=== PATIENT | female | born 1985 | race African-American/Black ===

== ENCOUNTER 2017-06-10 20:23 | Inpatient (IN) | payer OTHER ==
[2017-06-10] MEDS ORDERED: METOCLOPRAMIDE HCL INJECTION 10 MG/2 ML VIAL IVPUSH ONE (20:55)
[2017-06-10] MEDS ORDERED: SODIUM CHLORIDE 1,000 ML IV STA (20:55)
[2017-06-10] MEDS ORDERED: METOCLOPRAMIDE HCL INJECTION 10 MG/2 ML VIAL ONE (20:59)
--- NOTE | 2017-06-10 20:59 | PDOC ---
History of Present Illness - General Chief Complaint: Syncope/Near Syncope Stated Complaint: SYNCOPE Time Seen by Provider: 06/10/17 20:26 - History of Present Illness Initial Comments: 06/10/17 21:09 The patient is a 32 year old 3 months female who presents for evaluation following a syncopal episode. The patient reports that she was standing in line at a store and has a tingling sensation before having a witnessed syncopal episode. The patient's friend reports that he patient fell backwards against a fridge before sliding down to the floor. The patient denies any chest pain or palpitations prior to the syncopal episode. She denies any family history of heart disease or sudden . She reports that she follows with an OB and has had an US demonstrating a healthy intrauterine . She reports that over the past 2-3 weeks, she has been vomiting daily due to the . She denies any fevers, chills, SOB, chest pain, palpitations, abdominal pain, vaginal discharge, vaginal bleeding, or changes with urination or bowel movements. Past History - Past Medical History Allergies/Adverse Reactions: Allergies Allergy/AdvReac Type Severity Reaction Status Date / Time No Known Allergies Allergy Verified 06/10/17 20:27 Home Medications: Ambulatory Orders No Home Medications 0 dose .ROUTE UTDICT 01/09/13 Other medical history: Pt denies - Suicide/Smoking/Psychosocial Hx Smoking Status: No Smoking History: Never smoked Have you smoked in the past 12 months: No Number of Cigarettes Smoked Daily: 0 Information on smoking cessation initiated: No Hx Alcohol Use: No Drug/Substance Use Hx: No Substance Use Type: None Review of Systems - Review of Systems Comments:: 06/10/17 21:15 Constitutional: No fevers, chills, fatigue, malaise HEENT: No Rhinorrhea, nasal congestion, Cardiovascular: Syncope. No chest pain, palpitations, lightheadedness Respiratory: No Cough, SOB, Hemoptysis, Gastrointestinal: Nausea, vomiting. No Abdominal pain, Constipation, Diarrhea, Melena Genitourinary: No Dysuria, Frequency, Urgency, Hesitancy, Hematuria, Flank pain Musculoskeletal: No Myalgia, arthralgia Skin: No rashes, bruising, pallor Neurologic: No Headache, Dizziness, Numbness, Weakness, or Tingling *Physical Exam - Vital Signs Last Vital Signs Temp Pulse Resp BP Pulse Ox 97.6 F 74 20 98/62 98 06/10/17 20:27 06/10/17 20:27 06/10/17 20:27 06/10/17 20:27 06/10/17 20:27 - Physical Exam Comments: 06/10/17 21:17 General Appearance: Nourished. No Apparent Distress HEENT: EOMI, NIKKI. No Pharyngeal Erythema, Tonsillar Exudate, Tonsillar Erythema Neck: No Cervical Lymphadenopathy Respiratory/Chest: Lungs Clear, Normal Breath Sounds. No Crackles, Rales, Rhonchi, Wheezing Cardiovascular: Regular Rhythm, Regular Rate. No Murmur, Gallops, Rubs Gastrointestinal/Abdominal: Normal Bowel Sounds, Soft. 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 ED Treatment Course - LABORATORY CBC & Chemistry Diagram: 06/10/17 20:45 06/10/17 20:45 Medical Decision Making - Medical Decision Making 06/10/17 21:18 The patient is a 32 year old 3 months female who presents for evaluation following a syncopal episode. Differential includes but is not limited to: Vaso-vagal syncope, Arrhythmia, anemia, metabolic derangement. Given the patient's bp of 98 systolic here in the ED and history of tingling prior to the syncopal episode, it is likely her episode was due to vaso-vagol. However, it is also possible she is hypovolemic given her multiple episodes of vomiting and low bp. We will send a cbc, cmp to evaluate and obtain a ekg. We will give her a 1L ns bolus here in the ED and continue to monitor and reassess. 06/11/17 01:28 cbc is unremarkable. cmp demonstrates a sodium of 128, potassium of 2.8, and elevated liver enzymes. We repleated her potassium with 40mg po with 2gm of Iv mg. Given the patient's electrolyte abnormalities, elevated liver enzymes in the setting of syncope during , we believe that she requires admission for further management of her symptoms. We discussed the case with Dr. Cano who accepted the case for admission. We discussed the plan and results with the patient who voiced understanding and is agreeable with the plan. *DC/Admit/Observation/Transfer Diagnosis at time of Disposition: Syncope Qualifiers: Syncope type: unspecified Qualified Code(s): R55 - Syncope and collapse - Discharge Dispostion Condition at time of disposition: Guarded Admit: Yes
[2017-06-10 21:01] LABS: MCH 27.2 pg (25.7-33.7); MCHC 33.8 g/dl (32.0-36.0); MEAN CELL VOLUME 80.4 fl (80-96); MEAN PLT VOLUME 8.1 fl (7.5-11.1); PLATELET COUNT 290 K/MM3 (134-434); RDW 13.9 % (11.6-15.6); WHITE BLOOD COUNT 9.9 K/mm3 (4.0-10.0)
[2017-06-10 21:33] LABS: ALBUMIN 3.8 g/dl (3.4-5.0); ANION GAP 16 (8-16); CALCIUM 9.6 mg/dL (8.5-10.1); CO2 29 mmol/L (21-32); CREATININE 0.7 mg/dL (0.55-1.02); GLUCOSE,RANDOM 107 mg/dL (74-106); SGPT/ALT 86 U/L (12-78)
[2017-06-10 21:35] LABS: ALK PHOS 74 U/L (45-117); BILIRUBIN,TOTAL 1.8 mg/dL (0.2-1.0); TOT PROT 7.7 g/dl (6.4-8.2)
[2017-06-10 21:39] LABS: SGOT/AST 52 U/L (15-37)
[2017-06-10] MEDS ORDERED: POTASSIUM CHLORIDE TABS 20 MEQ TABLET.ER (FP) PO ONE ×2 (21:41→21:52)
[2017-06-10] MEDS ORDERED: MAGNESIUM SULF 50% (8.12 MEQ/2 ML-1 GM VIAL) IVPB ONE (21:42)
[2017-06-10] MEDS ORDERED: MAGNESIUM SULF 50% (8.12 MEQ/2 ML-1 GM VIAL) ONE (21:52)
[2017-06-10] MEDS ORDERED: POTASSIUM CHLORIDE ORAL LIQUID 20 MEQ/15 ML PO ONE (22:01)
[2017-06-10] MEDS ORDERED: POTASSIUM CHLORIDE ORAL LIQUID 20 MEQ/15 ML ONE (22:02)
--- NOTE | 2017-06-10 23:26 | PDOC ---
Attending Attestation - Resident Resident Name: BritHakeem - HPI HPI: 06/10/17 23:25 Pt comes with multiple episodes of vomiting. SHe is . Hyperemesis gravidum. - Physicial Exam PE: 06/10/17 23:26 Agree with resident exam - Medical Decision Making 06/10/17 23:26 EKG NSR; borderline tachy; pt is getting hydration and mag and potassium in [facility] ER. 06/11/17 05:05 Pt will be admitted for hypokalemia and syncope; report given to Dr. Cano, associate of pt's PMD [facility]. Pt will be admitted to telelmetry and her GYNs from [facility] will consult on the floor. 06/11/17 05:08 Pt is feeling better
[2017-06-10] MEDS ORDERED: SODIUM CHLORIDE 0.9% 500 ML INFUS.BAG IV ONE (23:27)
[2017-06-11 00:12] LABS: CPK 64 IU/L (26-192); TROPONIN I < 0.02 ng/ml (0.00-0.05)
[2017-06-11 02:03] LABS: ANION GAP 12 (8-16); CALCIUM 8.4 mg/dL (8.5-10.1); CO2 32 mmol/L (21-32); CREATININE 0.5 mg/dL (0.55-1.02); GLUCOSE,RANDOM 113 mg/dL (74-106)
[2017-06-11] MEDS ORDERED: METOCLOPRAMIDE HCL INJECTION 10 MG/2 ML VIAL IVPUSH PRN (02:49)
[2017-06-11] MEDS ORDERED: ACETAMINOPHEN 325 MG TABLET (FP) PO PRN (02:50)
[2017-06-11] MEDS ORDERED: SODIUM CHLORIDE 1,000 ML IV SCH (03:00)
[2017-06-11] MEDS: KCL 10 MEQ IVPB 100 ML IVPB SCH ×5 (03:29→22:50)
[2017-06-11 03:34] LABS: URINE APPEARANCE SLCLOUDY; URINE BILIRUBIN NEGATIVE (NEGATIVE); URINE BLOOD 1+ (NEGATIVE); URINE COLOR AMBER; URINE GLUCOSE (UA) NEGATIVE (NEGATIVE); URINE KETONE 2+ (NEGATIVE); URINE NITRITE NEGATIVE (NEGATIVE); URINE UROBILINOGEN 4.0 E.U/dl mg/dL (0.2-1.0)
[2017-06-11 03:38] LABS: URINE PROTEIN 1+ (NEGATIVE)
[2017-06-11 03:40] LABS: URINE BACTERIA RARE /hpf (NONE SEEN); URINE HYALINE CAST 13 /lpf; URINE MUCUS RARE; URINE RBC 8 /hpf (0-3); URINE WBC 15 /hpf (3-5)
[2017-06-11 03:48] VITALS: BMI 34.4
[2017-06-11 07:29] LABS: MCH 26.7 pg (25.7-33.7); MCHC 33.5 g/dl (32.0-36.0); MEAN CELL VOLUME 79.8 fl (80-96); PLATELET COUNT 217 K/MM3 (134-434); WHITE BLOOD COUNT 11.8 K/mm3 (4.0-10.0)
[2017-06-11 07:50] LABS: ALBUMIN 2.9 g/dl (3.4-5.0); ANION GAP 10 (8-16); CALCIUM 8.5 mg/dL (8.5-10.1); CO2 30 mmol/L (21-32); GLUCOSE,RANDOM 103 mg/dL (74-106)
[2017-06-11 07:54] LABS: ALK PHOS 59 U/L (45-117); BILIRUBIN,TOTAL 1.8 mg/dL (0.2-1.0); CREATININE 0.4 mg/dL (0.55-1.02); SGOT/AST 59 U/L (15-37); SGPT/ALT 88 U/L (12-78); TOT PROT 6.2 g/dl (6.4-8.2)
--- NOTE | 2017-06-11 09:06 | CON.NEURO ---
Consult - History of Present Illness History of Present Illness: 32 year old female , three month . She had episode of passing out maty night on may. Mariposa do not suffers from migraine or epilepsy. She passed out few minute and regain back to normal in few minute. She may have hit her head and her head is sore. Patient has been having nausea and vomiting throughout first trimester. Before she passed out, she felt dizzy and tingling sensation in her body. There was no twitnessed seizure. This is her fourth . - Past Medical History ...: Yes - Alcohol/Substance Use Hx Alcohol Use: No - Smoking History Smoking history: Never smoked Have you smoked in the past 12 months: No Aproximately how many cigarettes per day: 0 Home Medications - Allergies Allergies/Adverse Reactions: Allergies Allergy/AdvReac Type Severity Reaction Status Date / Time No Known Allergies Allergy Verified 06/10/17 20:27 - Home Medications Home Medications: Ambulatory Orders No Home Medications 0 dose .ROUTE UTDICT 01/09/13 Physical Exam-Neuro Vital Signs: Vital Signs Temperature 98.3 F 06/11/17 06:00 Pulse Rate 95 H 06/11/17 06:00 Respiratory Rate 20 06/11/17 06:00 Blood Pressure 110/65 06/11/17 06:00 O2 Sat by Pulse Oximetry (%) 99 06/11/17 03:47 Labs: CBC, BMP 06/11/17 06:45 06/11/17 06:45 Assessment/Plan cc syncopal episode HPI 32 year old female , three month . She had episode of passing out maty night on may. Mariposa do not suffers from migraine or epilepsy. She passed out few minute and regain back to normal in few minute. She may have hit her head and her head is sore. Patient has been having nausea and vomiting throughout first trimester. Before she passed out, she felt dizzy and tingling sensation in her body. There was no twitnessed seizure. This is her fourth . Past Medical history none. Medication only mvi denies any toxic habits. ROS, FH was reviewed in chart Neurological Examination Alert oriented x 3, speech is normal Eomi, pupils is reactive and no face asymmetry motor strength is normal, sensation is normal and reflex is normal no brain imaging done Assessment- Most likley vaso vagal syncope due hyperemesis during . There is no evidence of seizure and no supician for any neurological illness ( meningitis or stroke) at this time. Plan no need for ct head or mri of brain - would watch clinically , if she has any focal neuro symptoms consider mri of brain, it was discussed with patient She was given my info and advise to follow up outpatient Thnaks for consult Nacho Yuen MD
--- NOTE | 2017-06-11 09:31 | CON.CARD ---
Consult Consult Specialty:: CARDIOLOGY Referred by:: Dr. Cano Reason for Consultation:: Syncope - History of Present Illness Chief Complaint: Syncope History of Present Illness: 32 year old woman at 3 months gestation admitted with an episode of syncope and noted to have hypokalemia. Pt seen and examined today in nad. pt states that she has been nauseous and vomiting for a few weeks now, unable to keep much food or water down. she states this is similar to prior pregnancies. she states that she has been feeling lightheaded and dizzy lately but has not passed out until this event. she states that she was in the store standing in line yesterday when she felt lightheaded. she leaned on the counter to support herself but then lost consciousness and fell to the ground. in the ER found to have hypokalemia. today she states she is feeling much better. no nausea or vomiting today. able to keep down liquids. denies any chest pain, sob, palpitations. no pnd, orthopnea, or le edema. - History Source History Provided By: Patient, Medical Record Limitations to Obtaining History: No Limitations - Past Medical History ...: Yes Psych: Yes: Addictions - Alcohol/Substance Use Hx Alcohol Use: No History of Substance Use: reports: Marijuana - Smoking History Smoking history: Never smoked Have you smoked in the past 12 months: No Aproximately how many cigarettes per day: 0 - Social History ADL: Independent History of Recent Travel: No Home Medications - Allergies Allergies/Adverse Reactions: Allergies Allergy/AdvReac Type Severity Reaction Status Date / Time No Known Allergies Allergy Verified 06/10/17 20:27 - Home Medications Home Medications: Ambulatory Orders No Home Medications 0 dose .ROUTE UTDICT 01/09/13 Family Disease History - Family Disease History Family History: Denies Review of Systems - Review of Systems Constitutional: denies: No Symptoms, Chills, Diaphoresis, Fever, Lethargy, Loss of Appetite, Malaise, Night Sweats, Unintentional Wgt. Loss, Weakness, Other Eyes: denies: No Symptoms, Blind Spots, Blurred Vision, Double Vision, Eye Pain , Floaters, Photophobia, Recent Change in Vision, Other HENT: denies: No Symptoms, Difficult Swallowing, Ear Discharge, Ear Pain, Epistaxis, Gingival Bleeding, Hearing Loss, Mouth Swelling, Nasal Congestion, Ocular Prosthesis, Throat Pain, Toothache, Ringing in Ears, Other Neck: denies: No Symptoms, Decreased ROM, Lumps, Pain on Movement, Stiffness, Swollen Glands, Tenderness, Other Cardiovascular: denies: No Symptoms, Chest Pain, Edema, Palpitations, Shortness of Breath, Other Respiratory: denies: No Symptoms, Cough, Exercise Intolerance, Hemoptysis, Orthopnea, PND, Snoring, SOB, SOB on Exertion, Wheezing, Other Gastrointestinal: reports: Nausea, Vomiting. denies: No Symptoms, Abdominal Pain, Bloating, Constipation, Diarrhea, Dysphagia, Indigestion, Melena, Rectal Bleeding, Vomiting Blood, Other Genitourinary: denies: No Symptoms, Burning, Discharge, Dysuria, Flank Pain, Frequency, Hematuria, Incontinence, Lesions, Menses, Pain, Testicular Mass, Testicular Pain, Testicular Swelling, Urgency, Vaginal Bleeding, Other Breasts: denies: No Symptoms Reported, See HPI, Breast Implants, Discharge from Nipple, Lumps, Pain, Skin Changes, Other Musculoskeletal: denies: No Symptoms, Back Pain, Crepitus, Decreased ROM, Extremity Pain, Joint Pain, Joint Swelling, Muscle Pain, Muscle Cramps, Muscle Weakness, Other Integumentary: denies: No Symptoms, Blister, Bruising, Change in Color, Eczema, Erythema, Incision, Lesions, Lump, Pallor, Pruritis, Rash, Wound, Other Neurological: reports: Dizziness, Syncope. denies: No Symptoms, Change in LOC, Change in Speech, Confusion, Headache, Incoordination, Numbness, Parasthesia, Pre-Existing Deficit, Seizure, Tremors, Unsteady Gait, Weakness, Other Endocrine: denies: No Symptoms, Excessive Sweating, Flushing, Increased Hunger, Increased Thirst, Intolerance to Cold, Intolerance to Heat, Unexplained Weight Gain, Unexplained Weight Loss, Other Hematology/Lymphatic: denies: No Symptoms, Easily Bruised, Excessive Bleeding, Swollen Glands, Other Psychiatric: denies: No Symptoms, Altered Sleep Pattern, Anxiety, Depression, Hallucinations, Panic, Paranoia, Suicidal, Other Vital Signs: Vital Signs Temperature 98.3 F 06/11/17 06:00 Pulse Rate 95 H 06/11/17 06:00 Respiratory Rate 20 06/11/17 06:00 Blood Pressure 110/65 06/11/17 06:00 O2 Sat by Pulse Oximetry (%) 99 06/11/17 03:47 Constitutional: Yes: Well Nourished, No Distress, Calm Eyes: Yes: WNL, Conjunctiva Clear, EOM Intact, PERRL HENT: Yes: WNL, Atraumatic, Normocephalic Neck: Yes: WNL, Supple, Trachea Midline Respiratory: Yes: WNL, Regular, CTA Bilaterally. No: Rales, Rhonchi, Wheezes Gastrointestinal: Yes: WNL, Normal Bowel Sounds, Soft. No: Distention, Tenderness Renal/: Yes: WNL Cardiovascular: Yes: WNL, Regular Rate and Rhythm. No: Bradycardia, Tachycardia , Pulse Irregular, Gallop, Rub, Varicosities JVD: No Carotid Bruit: No PMI: Non-Displaced Heart Sounds: Yes: S1, S2. No: Split S2, S3, S4, Clicks, Gallop, Rub, Bruit Murmur: No: Systolic Murmur, Diastolic Murmur Musculoskeletal: Yes: WNL Extremities: Yes: WNL Edema: No Peripheral Pulses WNL: Yes Peripheral Pulses: 2+ Left Doralis Pedis, 2+ Right Dorsalis Pedis Integumentary: Yes: WNL Neurological: Yes: Alert, Oriented, Cran Nerves II-XII Intact Psychiatric: Yes: Alert, Oriented - Other Data Labs, Other Data: CBC, BMP 06/11/17 06:45 06/11/17 06:45 ekg-nsr 92bpm, no sig ST abnl Echo: Pending Imaging - Results Chest X-ray: Report Reviewed, Image Reviewed EKG: Report Reviewed, Image Reviewed Other: Report Reviewed, Image Reviewed (tele-nsr, sinus tach, no arryhthmias recorded) Assessment/Plan 32 year old woman at 3 months gestation admitted with an episode of syncope and noted to have hypokalemia. Pt seen and examined today in nad. pt states that she has been nauseous and vomiting for a few weeks now, unable to keep much food or water down. she states this is similar to prior pregnancies. she states that she has been feeling lightheaded and dizzy lately but has not passed out until this event. she states that she was in the store standing in line yesterday when she felt lightheaded. she leaned on the counter to support herself but then lost consciousness and fell to the ground. in the ER found to have hypokalemia. today she states she is feeling much better. no nausea or vomiting today. able to keep down liquids. denies any chest pain, sob, palpitations. no pnd, orthopnea, or le edema. Syncope/dizziness/lightheadedness -likely vasovagal secondary to persistent nausea/vomiting, hypokalemia -unlikely cardiac event, no arrhythmias recorded, no abnl on ekg -seen by neuro -check echo to evaluate for structural abnl -can hold of on carotid doppler, unlikely source -check orthostatic BP -hydration as needed, encourage po hydration -treat nausea and vomiting -replete K+, check Mg level and replete if needed -OB evaluation -would check for DMII -if no abnl on echo, pt tolerating po, nausea/vomiting improved, orthostatic BP ok, pt would be acceptable for discharge from a cardiac standpoint with outpatient f/up
--- NOTE | 2017-06-11 10:01 | EKG ---
Test Reason : Blood Pressure : / mmHG Vent. Rate : 092 BPM Atrial Rate : 092 BPM P-R Int : 166 ms QRS Dur : 096 ms QT Int : 362 ms P-R-T Axes : 067 045 039 degrees QTc Int : 447 ms NORMAL SINUS RHYTHM NORMAL ECG NO PREVIOUS ECGS AVAILABLE Confirmed by NORA AVERY MD ([id number]) on 06/11/2017 10:00:27 AM Referred By: Confirmed By:NORA AVERY MD
[2017-06-11 10:20] LABS: URINE LEUK ESTERASE Negative (NEGATIVE)
--- NOTE | 2017-06-11 12:01 | CON.OBG ---
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 The patient admits to having significant nausea/vomiting this . Pt fell back and slid to the floor, no witnessed seizure activity per her family. Pt denies any current KUO/chest pain/SOB. so far uncomplicated other than nausea/vomiting. - History Source History Provided By: Patient, Medical Record - Past Medical History Cardio/Vascular: No: HTN, Murmur Pulmonary: No: COPD Gastrointestinal: Yes: Other (nausea/vomiting of ). No: GERD Renal/: No: Hematuria, UTI ...: Yes ...: 11 ...Para: 3 Psych: Yes: Addictions - Alcohol/Substance Use Hx Alcohol Use: No History of Substance Use: reports: Marijuana - Smoking History Smoking history: Never smoked Have you smoked in the past 12 months: No Aproximately how many cigarettes per day: 0 - Social History ADL: Independent History of Recent Travel: No Home Medications - Allergies Allergies/Adverse Reactions: Allergies Allergy/AdvReac Type Severity Reaction Status Date / Time No Known Allergies Allergy Verified 06/10/17 20:27 - Home Medications Home Medications: Ambulatory Orders No Home Medications 0 dose .ROUTE UTDICT 01/09/13 Review of Systems - Review of Systems Constitutional: reports: No Symptoms Eyes: reports: No Symptoms HENT: reports: No Symptoms Neck: reports: No Symptoms Cardiovascular: reports: No Symptoms Respiratory: reports: No Symptoms Gastrointestinal: reports: No Symptoms Genitourinary: reports: No Symptoms Breasts: reports: No Symptoms Reported Musculoskeletal: reports: No Symptoms Integumentary: reports: No Symptoms Neurological: reports: No Symptoms Endocrine: reports: No Symptoms Hematology/Lymphatic: reports: No Symptoms Psychiatric: reports: No Symptoms 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[employer] Vital Signs: Vital Signs Temperature 99.2 F 06/11/17 10:00 Pulse Rate 100 H 06/11/17 10:00 Respiratory Rate 18 06/11/17 10:00 Blood Pressure 133/62 06/11/17 10:00 O2 Sat by Pulse Oximetry (%) 99 06/11/17 03:47 Constitutional: Yes: Well Nourished, No Distress, Calm Eyes: Yes: Conjunctiva Clear, EOM Intact HENT: Yes: Atraumatic, Normocephalic Neck: Yes: Supple, Trachea Midline Cardiovascular: Yes: Regular Rate and Rhythm Respiratory: Yes: Regular, CTA Bilaterally Gastrointestinal: Yes: Normal Bowel Sounds, Soft ....Post : Yes: Uterus non-tender Extremities: Yes: WNL Neurological: Yes: Alert, Oriented Psychiatric: Yes: Alert, Oriented Labs: CBC, BMP 06/11/17 06:45 06/11/17 06:45 Problem List - Problems (1) Syncope Code(s): R55 - SYNCOPE AND COLLAPSE Qualifiers: Syncope type: unspecified Qualified Code(s): R55 - Syncope and collapse ; R55 - Syncope and collapse Assessment/Plan 32 y/o P3 with SIUP at 12.2 weeks gestation here with episode of syncope, nausea , vomiting and hyponatremia/hypokalemia - AFVSS - Still hyponatremic and hypokalemia - for repletion as needed. Continue IV fluids. - nausea/vomiting - improved s/p reglan. Able to tolerate diet. Continue regular diet - 12.2 weeks of - ultrasound ordered - syncope - evaluated by neuro/cardiology with suspected vasovagal episode. Currently asymptomatic. - continue current care, once electrolyte imbalance improved/resolved and pt tolerating PO can follow up as outpatient
[2017-06-11] MEDS ORDERED: POTASSIUM CHLORIDE TABS 20 MEQ TABLET.ER (FP) PO ONE (15:15)
--- NOTE | 2017-06-11 15:30 | CONSULT ---
Consultation: REQUESTING PROVIDER: Dr. Cano CONSULT REQUEST: We have been asked to medically evaluate this patient for NEPHROLOGY / hyponatremia. HISTORY OF PRESENT ILLNESS: 32 y/o F who is 3 months presents to ER s/p syncopal event. Pt was standing in line at store where she syncopized. Before syncopal event pt felt tingling and numbness in arms. She has been vomiting for the last 2-3 weeks due to her . This is the second time she has syncopized. SHe syncopized in the past with another and at that time she was also vomiting. She states at this time she has not been able to eat or keep down water for the last 2 weeks and has been throwing up multiple times per day. At this time she feels well and has been able to tolerate her diet. She denies any CP, SOB, light -headedness, dizziness, swelling, abd pain, issues urinating, sick contacts, fevers, chills. REVIEW OF SYSTEMS: CONSTITUTIONAL: Absent: fever, chills CARDIOVASCULAR: +syncope Absent: chest pain, lightheadedness, peripheral edema RESPIRATORY: Absent: cough, shortness of breath GASTROINTESTINAL: Absent: abdominal pain, nausea, vomiting GENITOURINARY: Absent: dysuria, hematuria NEUROLOGIC: +syncopal event w/preceding parasthesias. Absent: headache, dizziness PHYSICAL EXAMINATION Vital Signs - 24 hr 06/11/17 06/11/17 06/11/17 01:31 03:42 03:47 Temperature 98.4 F Pulse Rate 84 Pulse Rate [ 76 Right] Respiratory 18 18 18 Rate Blood Pressure 122/51 Blood Pressure 106/65 [Left Arm] O2 Sat by Pulse 99 99 Oximetry (%) 06/11/17 06/11/17 06/11/17 06:00 09:00 10:00 Temperature 98.3 F 99.2 F Pulse Rate 95 H 100 H Pulse Rate [ Right] Respiratory 20 18 18 Rate Blood Pressure 110/65 133/62 Blood Pressure [Left Arm] O2 Sat by Pulse 99 Oximetry (%) GENERAL: Awake, alert, and fully oriented, in no acute distress. EYES: sclera anicteric, conjunctiva clear. EARS, NOSE, THROAT: Ears normal, nares patent LUNGS: Breath sounds equal, clear to auscultation bilaterally. HEART: Regular rate and rhythm, normal S1 and S2 ABDOMEN: Soft, nontender, not distended, normoactive bowel sounds, no guarding LOWER EXTREMITIES: well-perfused. No peripheral edema. NEUROLOGICAL: Normal speech. Gait not observed. PSYCHIATRIC: Cooperative. Good eye contact. Appropriate mood and affect. SKIN: Warm, dry Laboratory Results - last 24 hr 06/11/17 06/11/17 06/11/17 00:53 03:00 06:45 WBC 11.8 H RBC 4.63 Hgb 12.4 D Hct 37.0 MCV 79.8 L MCH 26.7 MCHC 33.5 RDW 14.0 Plt Count 217 D MPV 8.0 Sodium 133 L Potassium 3.3 L Chloride 89 L Carbon Dioxide 32 Anion Gap 12 BUN 10 Creatinine 0.5 L D Creat Clearance w eGFR Random Glucose 113 H Calcium 8.4 L Magnesium Total Bilirubin AST ALT Alkaline Phosphatase Total Protein Albumin Urine Color Donna Urine Appearance Slcloudy Urine pH 5.0 Ur Specific Standish 1.020 Urine Protein 1+ H Urine Glucose (UA) Negative Urine Ketones 2+ H Urine Blood 1+ H Urine Nitrite Negative Urine Bilirubin Negative Urine Urobilinogen 4.0 e.u/dl H Ur Leukocyte Esterase Negative Urine RBC 8 Urine WBC 15 Ur Epithelial Cells Rare Urine Bacteria Rare Hyaline Casts 13 Urine Mucus Rare 06/11/17 06/11/17 06:45 12:17 WBC RBC Hgb Hct MCV MCH MCHC RDW Plt Count MPV Sodium 130 L Potassium 2.8 L* Chloride 90 L Carbon Dioxide 30 Anion Gap 10 BUN 7 D Creatinine 0.4 L Creat Clearance w eGFR > 60 Random Glucose 103 Calcium 8.5 Magnesium 2.2 Total Bilirubin 1.8 H AST 59 H ALT 88 H Alkaline Phosphatase 59 D Total Protein 6.2 L Albumin 2.9 L D Urine Color Urine Appearance Urine pH Ur Specific Standish Urine Protein Urine Glucose (UA) Urine Ketones Urine Blood Urine Nitrite Urine Bilirubin Urine Urobilinogen Ur Leukocyte Esterase Urine RBC Urine WBC Ur Epithelial Cells Urine Bacteria Hyaline Casts Urine Mucus Active Medications Generic Name Dose Route Start Last Admin Trade Name Freq PRN Reason Stop Dose Admin Acetaminophen 650 mg 06/11/17 02:50 Tylenol - PO Q6H PRN FEVER OR PAIN Sodium Chloride 1,000 mls @ 50 mls/hr 06/11/17 03:00 06/11/17 03:29 Normal Saline - IV 50 mls/hr ASDIR CECIL Administration Metoclopramide HCl 10 mg 06/11/17 02:49 Reglan Injection - IVPUSH Q8H PRN NAUSEA Potassium Chloride 40 meq 06/11/17 15:15 K-Dur - PO 06/11/17 15:16 ONCE ONE ASSESSMENT/PLAN: 32 y/o F who is 3 months presents to ER s/p syncopal event w/nausea and vomiting over the last 2-3 weeks. 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 Thank you for this consultative opportunity. Visit type - Emergency Visit Emergency Visit: Yes ED Registration Date: 06/11/17 Care time: The patient presented to the Emergency Department on the above date and was hospitalized for further evaluation of their emergent condition. - New Patient This patient is new to me today: Yes Date on this admission: 06/11/17 - Critical Care Critical Care patient: No
[2017-06-11] MEDS ORDERED: POTASSIUM CHLORIDE ORAL LIQUID 20 MEQ/15 ML PO ONE ×2 (16:45→22:45)
--- NOTE | 2017-06-11 17:53 | PN ---
Teaching Attending Note Name of Resident: Evaristo Paris (Nephrology) ATTENDING PHYSICIAN STATEMENT I saw and evaluated the patient. I reviewed the resident's note and discussed the case with the resident. I agree with the resident's findings and plan as documented. Nephrology See consult filled by resident. Pt presents to the hospital after an episode of syncope. She has been vomiting for several weeks. She was found to be hypokalemic. pmhx denies family hx denies social hx neg ros neg Laboratory Tests 06/11/17 06/11/17 06/11/17 06:45 06:45 12:17 Hgb 12.4 D Sodium 130 L Potassium 2.8 L* Chloride 90 L Magnesium 2.2 Last Vital Signs Temp Pulse Resp BP Pulse Ox 99.2 F 100 H 18 133/62 99 06/11/17 10:00 06/11/17 10:00 06/11/17 10:00 06/11/17 10:00 06/11/17 09:00 Current Medications Generic Name Dose Route Start Last Admin Trade Name Freq PRN Reason Stop Dose Admin Acetaminophen 650 mg 06/11/17 02:50 Tylenol - PO Q6H PRN FEVER OR PAIN Sodium Chloride 1,000 mls @ 50 mls/hr 06/11/17 03:00 06/11/17 03:29 Normal Saline - IV 50 mls/hr ASDIR CECIL Administration Metoclopramide HCl 10 mg 06/11/17 02:49 Reglan Injection - IVPUSH Q8H PRN NAUSEA cardio s1s2 pulm clear GI soft ext neg edema neuro awake and alert Impression 1. hypokalemia 2. hyponatremiam 3. hyperemesis gravidum 4. elevated lft's 5. syncope Plan - cont with fluids - repleat potassium - monitor levels - check ua - GI eval for elevated lft's - will follow Dr Chakraborty
--- NOTE | 2017-06-11 18:45 | HP ---
Admitting History and Physical - Admission History of Present Illness: Pt is a 32 y/o female who is 12 weeks . Pt during this has been having nausea and vomiting for a few weeks now. Pt states taht she has not been eating much bc of these symptoms. However on the day of admission pt went shopping and was standing on line. She then began to feel lightheaded and dizzy and then had a syncopal episode. In the ER pt was found to be hypokalemic and hyponatremic. - Past Medical History Gastrointestinal: Yes: Other (nausea/vomiting of ) ...: Yes ...: 11 ...Para: 3 Psych: Yes: Addictions - Smoking History Smoking history: Never smoked Have you smoked in the past 12 months: No Aproximately how many cigarettes per day: 0 - Alcohol/Substance Use Hx Alcohol Use: No History of Substance Use: reports: Marijuana - Social History ADL: Independent History of Recent Travel: No Home Medications - Allergies Allergies/Adverse Reactions: Allergies Allergy/AdvReac Type Severity Reaction Status Date / Time No Known Allergies Allergy Verified 06/10/17 20:27 - Home Medications Home Medications: Ambulatory Orders No Home Medications 0 dose .ROUTE UTDICT 01/09/13 Family Disease History - Family Disease History Family History: Unremarkable Review of Systems - Review of Systems Constitutional: reports: No Symptoms Eyes: reports: No Symptoms HENT: reports: No Symptoms Neck: reports: No Symptoms Cardiovascular: reports: No Symptoms Respiratory: reports: No Symptoms Gastrointestinal: reports: Nausea, Vomiting Physical Examination Vital Signs: Vital Signs Temperature 99.2 F 06/11/17 10:00 Pulse Rate 100 H 06/11/17 10:00 Respiratory Rate 18 06/11/17 10:00 Blood Pressure 133/62 06/11/17 10:00 O2 Sat by Pulse Oximetry (%) 99 06/11/17 09:00 Constitutional: Yes: Well Nourished Eyes: Yes: WNL HENT: Yes: WNL Neck: Yes: WNL, Supple Cardiovascular: Yes: WNL, Regular Rate and Rhythm Respiratory: Yes: WNL, Regular, CTA Bilaterally Gastrointestinal: Yes: WNL, Normal Bowel Sounds, Soft Extremities: Yes: WNL Edema: No Neurological: Yes: WNL, Alert, Oriented ...Motor Strength: WNL Labs: CBC, BMP 06/11/17 06:45 06/11/17 06:45 Problem List - Problems (1) Syncope Assessment/Plan: Admitted to tele Probable due to vasovagal vs dehydration Cont IVF As per cardio/neuro Code(s): R55 - SYNCOPE AND COLLAPSE Qualifiers: Syncope type: unspecified Qualified Code(s): R55 - Syncope and collapse ; R55 - Syncope and collapse (2) Electrolyte abnormality Assessment/Plan: Replace electrolytes Monitor labs Renal consult noted Code(s): E87.8 - OTH DISORDERS OF ELECTROLYTE AND FLUID BALANCE, NEC (3) Assessment/Plan: As per THERMAL ENGINEER Code(s): Z34.90 - ENCNTR FOR SUPRVSN OF NORMAL , UNSP, UNSP TRIMESTER
[2017-06-11] MEDS: SODIUM CHLORIDE 1,000 ML with POTASSIUM CHLORIDE 10 MEQ IV SCH (20:28)
[2017-06-11 21:23] LABS: ANION GAP 9 (8-16); CALCIUM 8.1 mg/dL (8.5-10.1); CO2 27 mmol/L (21-32); CREATININE 0.5 mg/dL (0.55-1.02); GLUCOSE,RANDOM 120 mg/dL (74-106)
[2017-06-11 23:29] LABS: SODIUM,RANDOM URINE 11 MMOL/L
[2017-06-12] MEDS: KCL 10 MEQ IVPB 100 ML IVPB SCH ×2 (00:37→02:15)
[2017-06-12 07:09] LABS: BASOPHIL 0.5 % (0-2.0); EOSINOPHIL 0.8 % (0-4.5); MCH 26.8 pg (25.7-33.7); MCHC 32.9 g/dl (32.0-36.0); MEAN CELL VOLUME 81.4 fl (80-96); MEAN PLT VOLUME 8.2 fl (7.5-11.1); NEUTROPHILS 67.8 % (42.8-82.8); PLATELET COUNT 211 K/MM3 (134-434); RDW 14.5 % (11.6-15.6)
[2017-06-12 07:30] LABS: CALCIUM 8.1 mg/dL (8.5-10.1)
[2017-06-12 07:37] LABS: ALBUMIN 2.7 g/dl (3.4-5.0); ALK PHOS 50 U/L (45-117); ANION GAP 13 (8-16); BILIRUBIN,TOTAL 0.6 mg/dL (0.2-1.0); CO2 24 mmol/L (21-32); CREATININE 0.6 mg/dL (0.55-1.02); GLUCOSE,RANDOM 108 mg/dL (74-106); SGOT/AST 25 U/L (15-37); SGPT/ALT 65 U/L (12-78); TOT PROT 5.5 g/dl (6.4-8.2)
--- NOTE | 2017-06-12 08:51 | PN ---
Progress Note, Physician Chief Complaint: no complaints TELE: NSR History of Present Illness: Echo normal - Current Medication List Current Medications: Active Medications Acetaminophen (Tylenol -) 650 mg PO Q6H PRN PRN Reason: FEVER OR PAIN Potassium Chloride 10 meq/ (Sodium Chloride) 1,005 mls @ 50 mls/hr IV Q20H CECIL Last Admin: 06/11/17 20:28 Dose: 50 mls/hr Metoclopramide HCl (Reglan Injection -) 10 mg IVPUSH Q8H PRN PRN Reason: NAUSEA - Objective Vital Signs: Vital Signs Temperature 98.5 F 06/12/17 05:57 Pulse Rate 86 06/12/17 05:57 Respiratory Rate 18 06/12/17 05:57 Blood Pressure 111/57 06/12/17 05:57 O2 Sat by Pulse Oximetry (%) 99 06/11/17 20:40 Constitutional: Yes: Calm Cardiovascular: Yes: Regular Rate and Rhythm Respiratory: Yes: CTA Bilaterally Gastrointestinal: Yes: Soft Edema: No Neurological: Yes: Alert, Oriented ...Motor Strength: WNL Labs: CBC, BMP 06/12/17 05:30 06/12/17 05:30 Laboratory Tests 06/12/17 06/12/17 05:30 05:30 WBC 9.0 Hgb 11.5 Plt Count 211 Sodium 137 Potassium 3.2 L Creatinine 0.6 - ....Imaging EKG: Image Reviewed Assessment/Plan Assessment/Plan 32 year old woman at 3 months gestation admitted with an episode of syncope and noted to have hypokalemia. Syncope/dizziness/lightheadedness -likely vasovagal secondary to persistent nausea/vomiting, hypokalemia -unlikely cardiac event, no arrhythmias recorded, no abnl on ekg and echo normal. -hydration as needed, encourage po hydration -treat nausea and vomiting -replete K+, check Mg level and replete if needed -No further inpatient cardiac work up planned.
[2017-06-12 10:39] VITALS: BP 109/56; PULSE 92; TEMP 98.8
[2017-06-12] MEDS ORDERED: POTASSIUM CHLORIDE ORAL LIQUID 20 MEQ/15 ML PO ONE (10:45)
[2017-06-12] MEDS ORDERED: POTASSIUM CHLORIDE TABS 20 MEQ TABLET.ER (FP) PO ONE (13:20)
--- NOTE | 2017-06-12 14:52 | PN ---
Physical Exam: SUBJECTIVE: --NEPHROLOGY PROGRESS NOTE-- Patient seen and examined at bedside. Pt feels well and has no complaints at this time. Pt states she is tolerating her diet, is not having diarrhea, denies fevers, chills, nausea, vomiting, abd pain, light-headedness, dizziness. OBJECTIVE: Vital Signs Temperature 98.8 F 06/12/17 10:00 Pulse Rate 92 H 06/12/17 10:00 Respiratory Rate 19 06/12/17 10:00 Blood Pressure 109/56 06/12/17 10:00 O2 Sat by Pulse Oximetry (%) 99 06/12/17 09:00 GENERAL: The patient is awake, alert, and fully oriented, in no acute distress. ENT: Ears normal, nares patent LUNGS: Breath sounds equal, clear to auscultation bilaterally HEART: Regular rate and rhythm, S1, S2 ABDOMEN: Soft, nontender, nondistended, normoactive bowel sounds, no guarding, no rebound, no hepatosplenomegaly, no masses. EXTREMITIES: warm, well-perfused, no edema. NEUROLOGICAL: Normal speech, gait not observed. PSYCH: Normal mood, normal affect. SKIN: Warm, dry Laboratory Results - last 24 hr 06/11/17 06/11/17 06/11/17 19:45 22:30 22:30 WBC RBC Hgb Hct MCV MCH MCHC RDW Plt Count MPV Neutrophils % Lymphocytes % Monocytes % Eosinophils % Basophils % Sodium 133 L Potassium 2.9 L* Chloride 97 L Carbon Dioxide 27 Anion Gap 9 BUN 5 L D Creatinine 0.5 L D Creat Clearance w eGFR Random Glucose 120 H Serum Osmolality Calcium 8.1 L Magnesium Total Bilirubin AST ALT Alkaline Phosphatase Total Protein Albumin Urine Osmolality 275 L Ur Random Sodium 11 Ur Random Potassium 3.7 Ur Random Chloride < 10 06/12/17 06/12/17 06/12/17 05:30 05:30 05:30 WBC 9.0 RBC 4.29 Hgb 11.5 Hct 34.9 MCV 81.4 MCH 26.8 MCHC 32.9 RDW 14.5 Plt Count 211 MPV 8.2 Neutrophils % 67.8 Lymphocytes % 21.1 D Monocytes % 9.8 Eosinophils % 0.8 D Basophils % 0.5 D Sodium 137 Potassium 3.2 L Chloride 100 Carbon Dioxide 24 Anion Gap 13 BUN 4 L Creatinine 0.6 Creat Clearance w eGFR > 60 Random Glucose 108 H Serum Osmolality 278 Calcium 8.1 L Magnesium Total Bilirubin 0.6 D AST 25 D ALT 65 D Alkaline Phosphatase 50 Total Protein 5.5 L Albumin 2.7 L Urine Osmolality Ur Random Sodium Ur Random Potassium Ur Random Chloride 06/12/17 11:30 WBC RBC Hgb Hct MCV MCH MCHC RDW Plt Count MPV Neutrophils % Lymphocytes % Monocytes % Eosinophils % Basophils % Sodium Potassium Chloride Carbon Dioxide Anion Gap BUN Creatinine Creat Clearance w eGFR Random Glucose Serum Osmolality Calcium Magnesium 1.9 Total Bilirubin AST ALT Alkaline Phosphatase Total Protein Albumin Urine Osmolality Ur Random Sodium Ur Random Potassium Ur Random Chloride Active Medications Generic Name Dose Route Start Last Admin Trade Name Freq PRN Reason Stop Dose Admin Acetaminophen 650 mg 06/11/17 02:50 Tylenol - PO Q6H PRN FEVER OR PAIN Potassium Chloride 10 meq/ 1,005 mls @ 50 mls/hr 06/11/17 18:15 06/11/17 20:28 Sodium Chloride IV 50 mls/hr Q20H CECIL Administration Metoclopramide HCl 10 mg 06/11/17 02:49 Reglan Injection - IVPUSH Q8H PRN NAUSEA ASSESSMENT/PLAN: 32 y/o F who is 3 months presents to ER s/p syncopal event w/nausea and vomiting over the last 2-3 weeks. 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 - New Patient This patient is new to me today: No - Critical Care Critical Care patient: No
--- NOTE | 2017-06-12 15:37 | PN ---
Progress Note (short form) - Note Progress Note: 32 year old female , three month . She had episode of passing out sunday night on may. Patinet do not suffers from migraine or epilepsy. She passed out few minute and regain back to normal in few minute. She may have hit her head and her head is sore. Patient has been having nausea and vomiting throughout first trimester. Before she passed out, she felt dizzy and tingling sensation in her body. There was no twitnessed seizure. This is her fourth . Neurological Examination Alert oriented x 3, speech is normal Eomi, pupils is reactive and no face asymmetry motor strength is normal, sensation is normal and reflex is normal no brain imaging done Assessment- Most likley vaso vagal syncope due hyperemesis during causing hypokalemia. There is no evidence of seizure and no supician for any neurological illness ( meningitis or stroke) at this time. Plan no need for any more work up for neurological point of view she is feeling better and possibly discharge soon would see her prn Thnaks for consult Nacho Yuen MD
[2017-06-12] MEDS: SODIUM CHLORIDE 1,000 ML with POTASSIUM CHLORIDE 10 MEQ IV SCH (16:52)
[2017-06-12 17:22] LABS: ANION GAP 13 (8-16); CALCIUM 8.2 mg/dL (8.5-10.1); CO2 24 mmol/L (21-32); CREATININE 0.4 mg/dL (0.55-1.02); GLUCOSE,RANDOM 100 mg/dL (74-106); MAGNESIUM 1.8 mg/dL (1.8-2.4)
--- NOTE | 2017-06-12 17:29 | PN ---
Teaching Attending Note Name of Resident: Evaristo Paris (Nephrology) ATTENDING PHYSICIAN STATEMENT I saw and evaluated the patient. I reviewed the resident's note and discussed the case with the resident. I agree with the resident's findings and plan as documented. Nephrology Pt seen and examined at bedside. She is awake and alert. She feels that the nausea has resolved. She is tolerating diet. She had hyperemesis with all of her pregnancies. She denies shortness of breath. She is eager to go home. Current Medications Generic Name Dose Route Start Last Admin Trade Name Freq PRN Reason Stop Dose Admin Acetaminophen 650 mg 06/11/17 02:50 Tylenol - PO Q6H PRN FEVER OR PAIN Potassium Chloride 10 meq/ 1,005 mls @ 50 mls/hr 06/11/17 18:15 06/12/17 16:52 Sodium Chloride IV Not Given Q20H CECIL Metoclopramide HCl 10 mg 06/11/17 02:49 Reglan Injection - IVPUSH Q8H PRN NAUSEA Last Vital Signs Temp Pulse Resp BP Pulse Ox 98.8 F 92 H 19 109/56 99 06/12/17 10:00 06/12/17 10:00 06/12/17 10:00 06/12/17 10:00 06/12/17 09:00 Laboratory Tests 06/12/17 06/12/17 05:30 15:50 Sodium 136 Potassium 3.9 D Chloride 99 Magnesium 1.8 Total Bilirubin 0.6 D AST 25 D ALT 65 D Alkaline Phosphatase 50 cardio s1s2 pulm clear GI soft ext neg edema neuro awake and alert Impression 1. hypokalemia 2. hyponatremiam 3. hyperemesis gravidum 4. elevated lft's 5. syncope Plan - electrolytes improved - can stop fluids - pt has appointment with her VOICE INTERCEPT TECHNICIAN tomorrow - lfts improved - repeat ua with clean catch, if positive send culture
--- NOTE | 2017-06-12 18:26 | PN ---
Progress Note, Physician - Current Medication List Current Medications: Active Medications Acetaminophen (Tylenol -) 650 mg PO Q6H PRN PRN Reason: FEVER OR PAIN Metoclopramide HCl (Reglan Injection -) 10 mg IVPUSH Q8H PRN PRN Reason: NAUSEA - Objective Vital Signs: Vital Signs Temperature 98.8 F 06/12/17 10:00 Pulse Rate 92 H 06/12/17 10:00 Respiratory Rate 19 06/12/17 10:00 Blood Pressure 109/56 06/12/17 10:00 O2 Sat by Pulse Oximetry (%) 99 06/12/17 09:00 Labs: CBC, BMP 06/12/17 05:30 06/12/17 15:50 Problem List - Problems (1) Syncope Code(s): R55 - SYNCOPE AND COLLAPSE Qualifiers: Syncope type: unspecified Qualified Code(s): R55 - Syncope and collapse ; R55 - Syncope and collapse (2) Electrolyte abnormality Code(s): E87.8 - OTH DISORDERS OF ELECTROLYTE AND FLUID BALANCE, NEC (3) Code(s): Z34.90 - ENCNTR FOR SUPRVSN OF NORMAL , UNSP, UNSP TRIMESTER
--- NOTE | 2017-06-12 21:02 | DS ---
Physical Examination Vital Signs: Vital Signs Temperature 98.8 F 06/12/17 10:00 Pulse Rate 92 H 06/12/17 10:00 Respiratory Rate 19 06/12/17 10:00 Blood Pressure 109/56 06/12/17 10:00 O2 Sat by Pulse Oximetry (%) 99 06/12/17 09:00 Labs: CBC, BMP 06/12/17 05:30 06/12/17 15:50 Discharge Summary Reason For Visit: SYNCOPE Condition: Good - Instructions Diet, Activity, Other Instructions: Regular diet Referrals: Laith Barraza MD [Primary Care Provider] - Disposition: HOME - Home Medications Comprehensive Discharge Medication List: Ambulatory Orders No Home Medications 0 dose .ROUTE UTDICT 01/09/13
== END 2017-06-12 19:42 | disposition home or self-care (01) | DRG 781 ==
LOC: JER 20:23 → JERBED 06-11 00:12 → J4S 06-11 02:07
PROVIDERS: ADMIT Internal Medicine; ATTEND Internal Medicine
DX: O21.1 Hyperemesis gravidarum with metabolic disturbance (principal); O26.891 Other specified pregnancy related conditions, first trimester; R79.89 Other specified abnormal findings of blood chemistry; R55 Syncope and collapse; E86.0 Dehydration; Z3A.12 12 weeks gestation of pregnancy
CPT/HCPCS: 36415; 80048; 80053; 81003; 81015; 82436; 82550; 83735; 83930; 83935; 84133; 84300; 84484; 84702; 85025; 85027; 87086; 87186; 93005; 93010; 93306-TC; 99285-25

== ENCOUNTER 2017-10-22 14:47 | Emergency (ER) | payer OTHER ==
[2017-10-22 15:17] VITALS: TEMP 98.9; BMI 78.9
[2017-10-22] MEDS ORDERED: METOCLOPRAMIDE HCL INJECTION 10 MG/2 ML VIAL IVPB ONE (15:18)
[2017-10-22] MEDS ORDERED: SODIUM CHLORIDE 1,000 ML IV STA (15:19)
[2017-10-22] MEDS ORDERED: METOCLOPRAMIDE HCL INJECTION 10 MG/2 ML VIAL ONE (15:31)
--- NOTE | 2017-10-22 15:32 | PDOC ---
*Physical Exam - Vital Signs Last Vital Signs Temp Pulse Resp BP Pulse Ox 98.9 F 91 H 16 137/77 99 10/22/17 15:04 10/22/17 15:04 10/22/17 15:04 10/22/17 15:04 10/22/17 15:04 ED Treatment Course - LABORATORY CBC & Chemistry Diagram: 10/22/17 16:50 10/22/17 16:50 Medical Decision Making - Medical Decision Making 10/22/17 16:55 Ms Chowdhury is a 32 yo (8 elec abxs, 3 spon abs), ~31 weeks , with nausea, vomiting. She was seen in the ER 2 days ago and improved with reglan and IVF No vaginal bleeding No dysuria No fevers or chills Will give: IVF Reglan Check labs and UA Re assess 10/22/17 16:57 UA, CBC, CMP pending PT signed out to 4pm attending Pt being followed by JOSE Ortiz Pt seen by Midlevel Provider under my direct supervision Pt interviewed and examined I agree with plan as outlined by Midlevel Provider *DC/Admit/Observation/Transfer Diagnosis at time of Disposition: Hyperemesis - Discharge Dispostion Disposition: HOME Condition at time of disposition: Improved - Prescriptions Prescriptions: Metoclopramide HCl [Reglan] 10 mg PO Q8H #15 tablet - Referrals Referrals: Gina Jung MD [Primary Care Provider] - - Patient Instructions Printed Discharge Instructions: Nausea of (Alternative Therapy), DI for Nausea -- Adult Additional Instructions: DISCHARGE HOME. TRY TO EAT SMALL AMOUNTS FREQUENTLY. CRACKERS, RICE, APPLESAUCE , BANANAS, TEA AND WATER. IF SYMPTOMS PERSIST CALL YOUR DOCTOR IN THE MORNING AND SCHEDULE AN APPOINTMENT, OTHERWISE FOLLOW UP SCHEDULED WITH DR JUNG. RETURN TO LABOR AND DELIVERY IF YOU START TO HAVE REGULAR CONTRACTIONS YOUR WATER BREAKS YOU HAVE ANY VAGINAL BLEEDING OR YOU DO NOT FEEL THE BABY MOVING - Post Discharge Activity
--- NOTE | 2017-10-22 15:32 | PDOC ---
History of Present Illness - General Chief Complaint: Nausea/Vomiting Stated Complaint: Nausea/Vomiting Time Seen by Provider: 10/22/17 15:17 History Source: Patient - History of Present Illness Timing/Duration: other Associated Symptoms: reports: nausea/vomiting Past History - Past Medical History Allergies/Adverse Reactions: Allergies Allergy/AdvReac Type Severity Reaction Status Date / Time No Known Allergies Allergy Verified 10/19/17 08:19 Home Medications: Ambulatory Orders No Home Medications 0 dose .ROUTE UTDICT 01/09/13 Metoclopramide HCl [Reglan] 10 mg PO Q8H #15 tablet 10/22/17 COPD: No - Reproductive History (#): 12 Para: 3 Therapeutic (s) & number: Yes (8) - Suicide/Smoking/Psychosocial Hx Smoking Status: No Smoking History: Never smoked Have you smoked in the past 12 months: No Number of Cigarettes Smoked Daily: 0 Information on smoking cessation initiated: No Hx Alcohol Use: No Drug/Substance Use Hx: No Substance Use Type: None Hx Substance Use Treatment: No Review of Systems - Review of Systems Constitutional: No: Chills, Fever Respiratory: No: Shortness of Breath Cardiac (ROS): No: Chest Pain, Lightheadedness ABD/GI: Yes: Nausea, Vomiting. No: Abdominal cramping : No: Dysuria *Physical Exam - Vital Signs Last Vital Signs Temp Pulse Resp BP Pulse Ox 98.9 F 91 H 16 137/77 99 10/22/17 15:04 10/22/17 15:04 10/22/17 15:04 10/22/17 15:04 10/22/17 15:04 - Physical Exam General Appearance: Yes: Appropriately Dressed. No: Apparent Distress HEENT: positive: Normal Voice Respiratory/Chest: negative: Respiratory Distress Gastrointestinal/Abdominal: negative: Tender Integumentary: positive: Dry, Warm Neurologic: positive: Fully Oriented, Alert, Normal Mood/Affect ED Treatment Course - LABORATORY CBC & Chemistry Diagram: 10/22/17 16:50 10/22/17 16:50 Medical Decision Making - Medical Decision Making 10/22/17 15:23 32 yo F, , (8 elec abxs, 3 spon abs), ~31 weeks , with nausea, vomiting. Was seen in ED for same 2 days ago and improved with reglan and IVF and was sent to l&D for eval. States she was not sent home with prescription and returns with recurrent symptoms. Denies abdominal pain, vaginal bleed or dysuria at this time See exam 3rd trimester w/ hyperemesis Stable and well prasanth -IVF -reglan -labs -L&D 10/22/17 18:49 Blood glucose 68. D50 and food in progress. Will repeat finger stick. N/v has since resolved and patient able to tolerate po. Will transfer to L&D. 10/22/17 19:03 Rpt FS 150. Stable for transfer to L&D. Rx for reglan sent to pharmacy *DC/Admit/Observation/Transfer Diagnosis at time of Disposition: Hyperemesis - Discharge Dispostion Condition at time of disposition: Improved - Prescriptions Prescriptions: Metoclopramide HCl [Reglan] 10 mg PO Q8H #15 tablet - Referrals Referrals: Gina Jung MD [Primary Care Provider] - - Patient Instructions - Post Discharge Activity
[2017-10-22 17:00] LABS: BASO % 0.4 % (0-2.0); EOS % 0.4 % (0-4.5); HEMATOCRIT 39.4 % (32.4-45.2); LYMPH % 21.9 % (8-40); MCH 27.1 pg (25.7-33.7); MEAN CELL VOLUME 82.1 fl (80-96); MEAN PLT VOLUME 7.9 fl (7.5-11.1); MONO % 9.8 % (3.8-10.2); NEUT % 67.5 % (42.8-82.8); PLATELET COUNT 318 K/MM3 (134-434); WHITE BLOOD COUNT 8.5 K/mm3 (4.0-10.0)
[2017-10-22 17:05] LABS: URINE APPEARANCE CLEAR; URINE BILIRUBIN NEGATIVE (NEGATIVE); URINE BLOOD 2+ (NEGATIVE); URINE COLOR YELLOW; URINE GLUCOSE (UA) NEGATIVE (NEGATIVE); URINE KETONE 2+ (NEGATIVE); URINE LEUK ESTERASE NEGATIVE (NEGATIVE); URINE NITRITE NEGATIVE (NEGATIVE)
[2017-10-22 17:33] LABS: ALBUMIN 3.2 g/dl (3.4-5.0); ANION GAP 13 (8-16); BLOOD UREA NITROGEN 6 mg/dL (7-18); CALCIUM 8.4 mg/dL (8.5-10.1); CHLORIDE 101 mmol/L (98-107); CO2 22 mmol/L (21-32); CREATININE 0.5 mg/dL (0.55-1.02); GLUCOSE,RANDOM 68 mg/dL (74-106); POTASSIUM 3.4 mmol/L (3.5-5.1); SGOT/AST 16 U/L (15-37); SGPT/ALT 26 U/L (12-78); SODIUM 136 mmol/L (136-145)
[2017-10-22 17:35] LABS: ALK PHOS 74 U/L (45-117); BILIRUBIN,TOTAL 0.7 mg/dL (0.2-1.0); TOT PROT 7.5 g/dl (6.4-8.2)
[2017-10-22] MEDS ORDERED: DEXTROSE 50%-WATER - 25 GM/50 ML VIAL IVPUSH ONE (17:50)
[2017-10-22] MEDS ORDERED: DEXTROSE 50%-WATER 25 GM/50 ML DISP.SYRIN ONE (17:57)
[2017-10-22 18:14] LABS: URINE PROTEIN 3+ (NEGATIVE)
[2017-10-22 18:16] LABS: EPI CELLS RARE /HPF (FEW); URINE BACTERIA RARE /hpf (NONE SEEN); URINE MUCUS FEW
[2017-10-22 20:41] VITALS: BP 127/65; PULSE 105
== END 2017-10-22 21:00 | disposition home or self-care (01) ==
LOC: JER 14:47
PROC: 3E033GC Introduction of Other Therapeutic Substance into Peripheral Vein, Percutaneous Approach (ICD-10-PCS; principal; 2017-10-22)
PROC: 3E0337Z Introduction of Electrolytic and Water Balance Substance into Peripheral Vein, Percutaneous Approach (ICD-10-PCS; 2017-10-22)
DX: O21.0 Mild hyperemesis gravidarum (principal); Z3A.31 31 weeks gestation of pregnancy
CPT/HCPCS: 36415; 80053; 81003; 81015; 82962; 85025; 99282-25

== ENCOUNTER 2017-12-05 17:58 | Emergency (ER) | payer OTHER ==
[2017-12-05 18:19] VITALS: BMI 39.1
[2017-12-05] MEDS ORDERED: ONDANSETRON 4 MG/2 ML VIAL ONE (19:29)
[2017-12-05] MEDS ORDERED: ONDANSETRON 4 MG/2 ML VIAL IVPB ONE (19:30)
[2017-12-05] MEDS ORDERED: DEXTROSE 5%-LACTATED RINGERS 500 ML IV ONE ×2 (20:15→21:15)
[2017-12-05 20:16] LABS: HEMOGLOBIN 11.6 GM/dL (10.7-15.3); MEAN CELL VOLUME 79.7 fl (80-96); RDW 15.2 % (11.6-15.6)
[2017-12-05 20:18] LABS: BASO % 0.1 % (0-2.0); HEMATOCRIT 35.1 % (32.4-45.2); LYMPH % 13.2 % (8-40); MCH 26.2 pg (25.7-33.7); MCHC 32.9 g/dl (32.0-36.0); MEAN PLT VOLUME 8.4 fl (7.5-11.1); NEUT % 77.7 % (42.8-82.8); PLATELET COUNT 304 K/MM3 (134-434); WHITE BLOOD COUNT 9.8 K/mm3 (4.0-10.0)
[2017-12-05 20:45] VITALS: BP 139/70; PULSE 87; TEMP 99.5
[2017-12-05 20:48] LABS: URIC ACID 5.6 mg/dL (2.6-7.2)
[2017-12-05 21:57] LABS: ALK PHOS 102 U/L (45-117); ANION GAP 11 (8-16); BILIRUBIN,TOTAL 0.4 mg/dL (0.2-1.0); BLOOD UREA NITROGEN 7 mg/dL (7-18); CALCIUM 8.7 mg/dL (8.5-10.1); CHLORIDE 106 mmol/L (98-107); CO2 22 mmol/L (21-32); CREATININE 0.5 mg/dL (0.55-1.02); GLUCOSE,RANDOM 92 mg/dL (74-106); POTASSIUM 3.7 mmol/L (3.5-5.1); SGOT/AST 21 U/L (15-37); SGPT/ALT 21 U/L (12-78); SODIUM 139 mmol/L (136-145); TOT PROT 6.9 g/dl (6.4-8.2)
[2017-12-05] MEDS ORDERED: METOCLOPRAMIDE HCL INJECTION 10 MG/2 ML VIAL ONE (22:14)
[2017-12-05 22:29] LABS: URINE APPEARANCE SLCLOUDY; URINE BILIRUBIN NEGATIVE (<2.0 mg/dL); URINE BLOOD NEGATIVE (NEGATIVE); URINE COLOR YELLOW; URINE GLUCOSE (UA) 1+ (NEGATIVE); URINE KETONE 2+ (NEGATIVE); URINE LEUK ESTERASE NEGATIVE (NEGATIVE); URINE NITRITE NEGATIVE (NEGATIVE); URINE UROBILINOGEN NEGATIVE mg/dL (0.2-1.0)
[2017-12-05] MEDS ORDERED: METOCLOPRAMIDE HCL INJECTION 10 MG/2 ML VIAL IVPB ONE (22:30)
[2017-12-05 22:56] LABS: URINE PROTEIN 2+ (NEGATIVE)
[2017-12-05 22:57] LABS: EPI CELLS MANY /HPF (FEW); URINE BACTERIA RARE /hpf (NONE SEEN); URINE MUCUS RARE
== END 2017-12-06 | disposition home or self-care (01) ==
LOC: JER 17:58
DX: O26.893 Other specified pregnancy related conditions, third trimester (principal); O26.891 Other specified pregnancy related conditions, first trimester; R11.2 Nausea with vomiting, unspecified; Z3A.36 36 weeks gestation of pregnancy
CPT/HCPCS: 36415; 80053; 81003; 81015; 82150; 82977; 83010; 84450; 84460; 84550; 85025; 99282-25

== ENCOUNTER 2017-12-14 14:05 | Inpatient (IN) | payer OTHER ==
[2017-12-14] MEDS ORDERED: DEXTROSE 5%-LACTATED RINGERS 1,000 ML IV ONE (14:30)
[2017-12-14 15:37] LABS: HEMATOCRIT 39.6 % (32.4-45.2); HEMOGLOBIN 13.4 GM/dL (10.7-15.3); MCH 26.9 pg (25.7-33.7); MEAN CELL VOLUME 79.2 fl (80-96); MEAN PLT VOLUME 8.3 fl (7.5-11.1); PLATELET COUNT 257 K/MM3 (134-434); RDW 15.6 % (11.6-15.6); WHITE BLOOD COUNT 5.3 K/mm3 (4.0-10.0)
[2017-12-14 15:50] LABS: PROTHROMBIN TIME (PATIENT) 11.3 SEC (9.7-13.0)
[2017-12-14 15:53] LABS: ACTIVATED PTT 28.8 SECONDS (26.9-34.4)
[2017-12-14 15:57] LABS: ALBUMIN 3.1 g/dl (3.4-5.0); ANION GAP 15 (8-16); BILIRUBIN,TOTAL 1.8 mg/dL (0.2-1.0); BLOOD UREA NITROGEN 23 mg/dL (7-18); CALCIUM 9.1 mg/dL (8.5-10.1); CHLORIDE 91 mmol/L (98-107); CO2 25 mmol/L (21-32); CREATININE 1.4 mg/dL (0.55-1.02); GLUCOSE,RANDOM 140 mg/dL (74-106); POTASSIUM 3.3 mmol/L (3.5-5.1); SGOT/AST 50 U/L (15-37); SGPT/ALT 65 U/L (12-78); SODIUM 131 mmol/L (136-145); TOT PROT 7.3 g/dl (6.4-8.2)
[2017-12-14 15:58] LABS: ALK PHOS 128 U/L (45-117)
[2017-12-14] MEDS ORDERED: DEXTROSE 5%-LACTATED RINGERS 1,000 ML IV SCH (16:30)
[2017-12-14] MEDS ORDERED: ONDANSETRON 4 MG/2 ML VIAL IVPUSH ONE (17:13)
[2017-12-14] MEDS ORDERED: POTASSIUM CHLORIDE TABS 20 MEQ TABLET.ER (FP) PO ONE (17:14)
[2017-12-14] MEDS ORDERED: SODIUM CHLORIDE 1,000 ML IV SCH (17:15)
[2017-12-14] MEDS ORDERED: POTASSIUM CHLORIDE ORAL LIQUID 20 MEQ/15 ML PO ONE (19:45)
[2017-12-14 20:20] LABS: URINE APPEARANCE CLOUDY; URINE BLOOD NEGATIVE (NEGATIVE); URINE COLOR AMBER; URINE GLUCOSE (UA) NEGATIVE (NEGATIVE); URINE KETONE 1+ (NEGATIVE); URINE LEUK ESTERASE TRACE (NEGATIVE); URINE NITRITE NEGATIVE (NEGATIVE); URINE UROBILINOGEN 4.0 E.U/dl mg/dL (0.2-1.0)
[2017-12-14 20:21] LABS: URINE PROTEIN 1+ (NEGATIVE)
[2017-12-14 20:31] LABS: EPI CELLS FEW /HPF (FEW); GRANULAR CASTS 14 /lpf; URINE BACTERIA MANY /hpf (NONE SEEN); URINE HYALINE CAST 3 /lpf; URINE MUCUS RARE
[2017-12-14] MEDS ORDERED: ONDANSETRON 4 MG/2 ML VIAL IVPB PRN (20:55)
[2017-12-14] MEDS ORDERED: SODIUM CHLORIDE 0.9%/KCL 20 MEQ/1,000 ML INFUS.BAG IV SCH (21:00)
[2017-12-14 21:49] VITALS: BMI 37.0
[2017-12-15] MEDS ORDERED: TUBERCULIN PPD 5 TU/0.1ML SYRINGE (IN PATIENT USE ONLY) ID ONE
[2017-12-15] MEDS ORDERED: DINOPROSTONE 10 MG VAGINAL SUPPOSITORY VG ONE (09:00)
[2017-12-15] MEDS ORDERED: AMPICILLIN - 2 GM in SODIUM CHLORIDE 100 ML IVPB ONE (09:40)
--- NOTE | 2017-12-15 09:40 | HP ---
Past Medical History - Primary Care Physician PCP:: Ivanna Whitlock - Admission History of Present Illness: 32 y/o with SIUP at term admitted to hospital overnight for complaints of continuous nausea/vomiting throughout . On labs pt was found to be hyponatremic and hypokalemic. Pt has been on IV repletion and given anti nausea medication. Pt desires IOL 2/2 continued n/v of . 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 Weeks Gestation by Dates: 40.2 ...EDC by Dates: 12/12/17 ...EDC by Sono: 12/26/17 Heme/Onc: No: Anemia Psych: Yes: Addictions - Past Surgical History Hx Myomectomy: No Hx Transabdominal Cerclage: No - Smoking History Smoking history: Never smoked Have you smoked in the past 12 months: No Aproximately how many cigarettes per day: 0 - Alcohol/Substance Use Hx Alcohol Use: No History of Substance Use: reports: Marijuana - Social History ADL: Independent History of Recent Travel: No Home Medications - Allergies Allergies/Adverse Reactions: Allergies Allergy/AdvReac Type Severity Reaction Status Date / Time No Known Allergies Allergy Verified 12/14/17 21:52 - Home Medications Home Medications: Ambulatory Orders Vit/Iron Fum/Folic AC [ Tablet] 1 each PO DAILY 12/14/17 Review of Systems - Review of Systems Constitutional: reports: No Symptoms Eyes: reports: No Symptoms HENT: reports: No Symptoms Neck: reports: No Symptoms Cardiovascular: reports: No Symptoms Respiratory: reports: No Symptoms Gastrointestinal: reports: Nausea, Vomiting Genitourinary: reports: No Symptoms Breasts: reports: No Symptoms Reported Musculoskeletal: reports: No Symptoms Integumentary: reports: No Symptoms Neurological: reports: No Symptoms Endocrine: reports: No Symptoms Hematology/Lymphatic: reports: No Symptoms Psychiatric: reports: No Symptoms Physical Exam - Maternity Vital Signs: Vital Signs Temperature 98.5 F 12/15/17 09:00 Pulse Rate 107 H 12/15/17 09:00 Respiratory Rate 18 12/15/17 09:00 Blood Pressure 140/84 12/15/17 09:00 O2 Sat by Pulse Oximetry (%) Constitutional: Yes: Well Nourished, No Distress, Calm Eyes: Yes: Conjunctiva Clear, EOM Intact HENT: Yes: Atraumatic, Normocephalic Neck: Yes: Supple, Trachea Midline Cardiovascular: Yes: Regular Rate and Rhythm Lungs: Clear to auscultation Breast(s): Yes: WNL - Abdominal Exam/OB Number of Fetuses: Single Presentation: Vertex Contractions: No Monitor Mode: External Category: I Accelerations: Uniform Decelerations: None - Vaginal Exam/OB Vaginal Bleediing: No Dilatation (cm): 2-3 Effacement (%): 50 Amniotic Membrane Status: Intact Presentation: Vertex/Position Station: -2 - Physical Exam Psychiatric: Yes: Alert, Oriented - Labs Lab Results: CBC, BMP 12/14/17 15:10 Hemorrhage Risk Assessment - Risk Factors Medium Risk Factors: Yes: None High Risk Factors: Yes: None Risk Score: 1 Risk Level: Medium Risk Problem List - Problems (1) Hypokalemia Code(s): E87.6 - HYPOKALEMIA (2) Electrolyte abnormality Code(s): E87.8 - OTH DISORDERS OF ELECTROLYTE AND FLUID BALANCE, NEC (3) Code(s): Z34.90 - ENCNTR FOR SUPRVSN OF NORMAL , UNSP, UNSP TRIMESTER Qualifiers: Weeks of gestation: 39 weeks Qualified Code(s): Z3A.39 - 39 weeks gestation of Assessment/Plan 32 y/o female with SIUP at 39+ weeks, nausea vomiting, hypokalemia and hyponatremia - FHTS cat 1 - continue IV fluids with saline/potassium- will monitor serial CMPs and replete as needed - IOL, cervidil placed, re evalaute 12 hours for possible pitocin - GBS positive to start ampicillin with painful contractions
[2017-12-15] MEDS ORDERED: BUTORPHANOL TARTRATE 1 MG/ML VIAL IVPB ONE (09:42)
[2017-12-15] MEDS ORDERED: PROMETHAZINE HCL 25 MG/1 ML VIAL IVPB ONE (09:42)
[2017-12-15 10:01] LABS: ALBUMIN 2.9 g/dl (3.4-5.0); ALK PHOS 125 U/L (45-117); ANION GAP 11 (8-16); BILIRUBIN,TOTAL 1.9 mg/dL (0.2-1.0); BLOOD UREA NITROGEN 16 mg/dL (7-18); CALCIUM 8.6 mg/dL (8.5-10.1); CHLORIDE 96 mmol/L (98-107); CO2 26 mmol/L (21-32); CREATININE 0.9 mg/dL (0.55-1.02); GLUCOSE,RANDOM 84 mg/dL (74-106); POTASSIUM 3.2 mmol/L (3.5-5.1); SGOT/AST 62 U/L (15-37); SGPT/ALT 76 U/L (12-78); SODIUM 133 mmol/L (136-145); TOT PROT 6.9 g/dl (6.4-8.2)
[2017-12-15] MEDS ORDERED: ELECTROLYTE-148 SOLN 1,000 ML IV SCH (14:00)
[2017-12-15] MEDS ORDERED: ELECTROLYTE-148 SOLN 1,000 ML IV ONE (14:00)
[2017-12-15] MEDS: AMPICILLIN - 1 GM in SODIUM CHLORIDE 100 ML IVPB SCH ×3 (18:00→21:30)
[2017-12-15] MEDS ORDERED: OXYTOCIN 30 UNITS in 0.9% NS 30 UNIT/500 ML INFUS.BAG IVPB SCH (18:30)
[2017-12-15] MEDS ORDERED: OXYTOCIN 30 UNITS in 0.9% NS 30 UNIT/500 ML INFUS.BAG IVPB ONE (19:40)
[2017-12-15] MEDS ORDERED: BUTORPHANOL TARTRATE 1 MG/ML VIAL ONE ×2 (19:40)
[2017-12-15] MEDS ORDERED: PROMETHAZINE HCL 25 MG/1 ML VIAL ONE (19:41)
--- NOTE | 2017-12-15 19:42 | PN ---
Ante-Partal Exam - Subjective Vital Signs: Vital Signs Temperature 98.4 F 12/15/17 18:00 Pulse Rate 94 H 12/15/17 19:00 Respiratory Rate 18 12/15/17 19:00 Blood Pressure 140/82 12/15/17 19:00 O2 Sat by Pulse Oximetry (%) Bleeding: No Headache: No Visual changes: No Right upper quadrant pain: No - Contractions Contractions: Yes Regularity: Regular Intensity: Mild/Mod Monitor Mode: External - Exam during Labor Heart Rate: 150 Variability: Moderate Category: I Monitor Accelerations: Absent Monitor Decelerations: None Exam: Vaginal Dilatation (cm): 5.5 Effacement (%): 90 Amniotic Membrane Status: Ruptured (AROM for clear fluid) Amniotic Fluid: Clear Presentation: Vertex Station: -2 - Assessment/Plan Assessment/Plan: 32 y/o with SIUP at 39+ weeks, IOL - FHTS cat 1 - IOL, s/p cervidil, AROMed now and will start pitocin - GBS positive, continue ampicillin - anticipate
[2017-12-15] MEDS ORDERED: OXYTOCIN 20 UNITS in 0.9% NS 20 UNIT/1,000 ML INFUS.BAG IV ONE ×2 (21:56→23:17)
--- NOTE | 2017-12-15 22:24 | PN ---
Delivery - Delivery Vaginal Delivery: No Problems Type of Anesthesia: None (pt recieved IV stadol and phenergan around 2000 pm) Episiotomy/Laceration: None EBL (cc): 300 Delivery, Single - Stages of Labor Date of Delivery: 12/15/17 Time of Delivery: 22:07 Date Placenta Delivered: 12/15/17 Time Placenta Delivered: 22:14 Placenta: Yes: Spontaneous - Condition of Infant Powerhouse Engineer/Cutter Operator Tile Present: No Infant Gender: Male Position: OA - 1 Minute Total Score: 9 5 Minutes Total Score: 9 - Feeding Plan Initial Plan: Exclusive throughout hospitalization Remarks - Remarks Remarks: Uncomplicated of baby boy from direct OA position bilateral shoulders delivered with ease along with remainder of cord clamped and cut mouth and nose bulb suctioned 3VC noted placenta delivered spontaneously and in tact mom stable baby to well baby nursery sponge count correct after delivery
[2017-12-15] MEDS ORDERED: BISACODYL 10 MG SUPP.RECT RC PRN (22:25)
[2017-12-15] MEDS ORDERED: IBUPROFEN 600 MG TABLET (FP) PO PRN (22:25)
[2017-12-15] MEDS ORDERED: METHYLERGONOVINE MALEATE 0.2 MG/1 ML AMP IM PRN (22:25)
[2017-12-15] MEDS ORDERED: BENZOCAINE 28 GM HEMORRHOIDAL OINTMENT TP PRN (22:25)
[2017-12-15] MEDS ORDERED: BENZOCAINE 20% 57 GM BOTTLE TP PRN (22:25)
[2017-12-15] MEDS ORDERED: WITCH HAZEL 50% (TUCKS) 40 PAD/JAR PAD TP PRN (22:25)
[2017-12-15] MEDS ORDERED: ACETAMINOPHEN 325 MG TABLET (FP) PO PRN (22:25)
[2017-12-15] MEDS ORDERED: OXYTOCIN 20 UNITS in 0.9% NS 20 UNIT/1,000 ML INFUS.BAG IV SCH (22:30)
[2017-12-16] MEDS ORDERED: ACETAMINOPHEN 650 MG/20.3 ML ORAL SOLUTION (CUPS) PO PRN (01:20)
[2017-12-16] MEDS ORDERED: IBUPROFEN 100 MG/5 ML UNIT DOSE CUPS PO PRN (01:21)
--- NOTE | 2017-12-16 07:04 | PN ---
Post Progress Note - Subjective Subjective: Pt feeling well this a.m., states nausea/vomiting has improved, feels hungry. Ambulating, voiding, passing flatus. Denies CP/SOB/F/C/KUO. Type of Delivery: Vital Signs: Vital Signs Temperature 98.5 F 12/16/17 06:02 Pulse Rate 104 H 12/16/17 06:02 Respiratory Rate 20 12/16/17 06:02 Blood Pressure 112/57 12/16/17 06:02 O2 Sat by Pulse Oximetry (%) 100 12/15/17 23:15 Uterus: Yes: Fundus Firm Abdomen/GI: Yes: Abdomen soft Lochia: Yes: Rubra Lochia, amount: Small Extremities: Yes: Calves non-tender Perineum: Yes: Intact Activity: Ambulating - Labs Labs: CBC WBC 5.3 K/mm3 (4.0-10.0) D 12/14/17 15:10 RBC 5.00 M/mm3 (3.60-5.2) 12/14/17 15:10 Hgb 13.4 GM/dL (10.7-15.3) D 12/14/17 15:10 Hct 39.6 % (32.4-45.2) 12/14/17 15:10 MCV 79.2 fl (80-96) L 12/14/17 15:10 MCH 26.9 pg (25.7-33.7) 12/14/17 15:10 MCHC 34.0 g/dl (32.0-36.0) 12/14/17 15:10 RDW 15.6 % (11.6-15.6) 12/14/17 15:10 Plt Count 257 K/MM3 (134-434) 12/14/17 15:10 MPV 8.3 fl (7.5-11.1) 12/14/17 15:10 Problem List - Problems (1) Hypokalemia Code(s): E87.6 - HYPOKALEMIA (2) Electrolyte abnormality Code(s): E87.8 - OTH DISORDERS OF ELECTROLYTE AND FLUID BALANCE, NEC (3) Code(s): Z34.90 - ENCNTR FOR SUPRVSN OF NORMAL , UNSP, UNSP TRIMESTER Qualifiers: Weeks of gestation: 39 weeks Qualified Code(s): Z3A.39 - 39 weeks gestation of (4) Vaginal delivery Code(s): O80 - ENCOUNTER FOR FULL-TERM UNCOMPLICATED DELIVERY Assessment/Plan 32 y/o PPD#1 s/p normal , initially admitted with hypokalemia, hyponatremia due to nausea/vomiting - AFVSS - nausea/vomiting - improved, continue zofran prn, diet as tolerated - hypokalemia/hyponatremia - continue serial CMPs and replete as needed - regular diet as tolerated - PO pain meds as needed - routine care
[2017-12-16] MEDS ORDERED: SODIUM CHLORIDE 0.9%/KCL 20 MEQ/1,000 ML INFUS.BAG IV SCH (08:00)
[2017-12-16 08:09] LABS: BASO % 0.3 % (0-2.0); EOS % 0.1 % (0-4.5); HEMATOCRIT 34.4 % (32.4-45.2); HEMOGLOBIN 11.3 GM/dL (10.7-15.3); LYMPH % 12.4 % (8-40); MCH 25.9 pg (25.7-33.7); MCHC 32.7 g/dl (32.0-36.0); MEAN CELL VOLUME 79.1 fl (80-96); MEAN PLT VOLUME 8.3 fl (7.5-11.1); MONO % 10.4 % (3.8-10.2); NEUT % 76.8 % (42.8-82.8); PLATELET COUNT 202 K/MM3 (134-434); RBC 4.35 M/mm3 (3.60-5.2)
[2017-12-16] MEDS: FERROUS SO4 325 MG TABLET (FP) PO SCH ×3 (08:30→17:55)
[2017-12-16 08:45] LABS: ALBUMIN 2.4 g/dl (3.4-5.0); ALK PHOS 102 U/L (45-117); BILIRUBIN,TOTAL 1.6 mg/dL (0.2-1.0); BLOOD UREA NITROGEN 9 mg/dL (7-18); CALCIUM 8.5 mg/dL (8.5-10.1); CO2 25 mmol/L (21-32); CREATININE 0.8 mg/dL (0.55-1.02); GLUCOSE,RANDOM 76 mg/dL (74-106); SGOT/AST 47 U/L (15-37); SGPT/ALT 62 U/L (12-78); TOT PROT 5.7 g/dl (6.4-8.2)
[2017-12-16 08:54] LABS: ANION GAP 12 (8-16); CHLORIDE 101 mmol/L (98-107); MAGNESIUM 1.7 mg/dL (1.8-2.4); POTASSIUM 3.2 mmol/L (3.5-5.1); SODIUM 138 mmol/L (136-145)
[2017-12-16] MEDS: PRENATAL VITAMINS W/ FOLIC ACID TABLET (FP) PO SCH (09:36)
[2017-12-16] MEDS ORDERED: POTASSIUM CHLORIDE TABS 20 MEQ TABLET.ER (FP) PO ONE (10:00)
[2017-12-16] MEDS: MAGNESIUM OXIDE 400 MG TABLET (FP) PO SCH ×2 (10:44→21:19)
[2017-12-16 13:22] LABS: COCAINE, UR NEGATIVE ng/ml (CUTOFF=300); METHADONE, UR NEGATIVE ng/ml (CUTOFF=300); OPIATES, URI NEGATIVE ng/ml (CUTOFF=300); PHENCYCLIDINE,URINE NEGATIVE ng/ml (CUTOFF=25); URINE AMPHETAMINES NEGATIVE ng/ml (CUTOFF=500); URINE BARBITURATES NEGATIVE ng/ml (CUTOFF=200); URINE BENZODIAZEPINES NEGATIVE ng/ml (CUTOFF=200)
--- NOTE | 2017-12-16 16:03 | DS ---
Physical Exam-SALES ADVISOR Vital Signs: Vital Signs Temperature 98.2 F 12/16/17 14:00 Pulse Rate 99 H 12/16/17 14:00 Respiratory Rate 20 12/16/17 14:00 Blood Pressure 130/74 12/16/17 14:00 O2 Sat by Pulse Oximetry (%) 100 12/15/17 23:15 Labs: CBC, BMP 12/16/17 06:40 12/16/17 06:40 Delivery - Delivery Vaginal Delivery: No Problems Type of Anesthesia: None Episiotomy/Laceration: None EBL (cc): 300 Delivery, Single - Stages of Labor Date 1st Stage Initiatied: 12/15/17 Time 1st Stage Initiated: 19:35 Date 2nd Stage Initiated: 12/15/17 Time 2nd Stage Initiated: 21:55 Date of Delivery: 12/15/17 Time of Delivery: 22:07 Time Placenta Delivered: 22:14 Placenta: Yes: Spontaneous - Condition of Infant Incident Analyst/Laser Specialist Present: No Infant Gender: Male Weight: 7 lb 6 oz Position: OA Total Hours ROM (Hrs/Mins): 2 HOURS/37 MINUTES - 1 Minute Total Score: 9 5 Minutes Total Score: 9 - [place] Feeding Plan Initial Plan: Exclusive throughout hospitalization Discharge Summary Reason For Visit: INDUCTION Current Active Problems Hypokalemia (Acute) Vaginal delivery (Acute) Procedures: Principal: Normal vaginal delivery Hospital Course: Pt admitted on 12/14 with nausea and vomiting, found to have electrolyte abnormalities. Pt was given IV repletion and anti emetics. Pt then underwent elective labor induction on 12/15 and an uncomplicated vaginal delivery. Mom recovered well, continued to have CMP monitored with electrolyte repletion as needed. Mom was stable and discharged home on post day 2. Condition: Good - Instructions Diet, Activity, Other Instructions: Physical activity Resume your normal everyday activity as tolerated but no heavy lifting or strenuous exercise until seen by your doctor. You may walk unlimited amounts and climb stairs. You may resume driving the car when you feel safe and comfortable behind the wheel. No sexual activity as instructed. You may shower only. Do not soak in tubs/baths/pools for 6 weeks. Diet There are no dietary restrictions. Eat healthy, high-fiber foods. Drink 6 to 8 glasses of liquid each day. This will assist in keeping your bowels regular. Pain management You may take Tylenol or Ibuprofen (for example, Motrin, Advil etc.) for pain. Call MD for any of the following: Severe pain not relieved by medication Fever of 101 or higher Excessive bleeding or drainage on dressing Inability to urinate Referrals: Ivanna Whitlock DO [Staff Physician] - (6 weeks) Disposition: HOME - Home Medications Comprehensive Discharge Medication List: Ambulatory Orders Vit/Iron Fum/Folic AC [ Tablet] 1 each PO DAILY 12/14/17 Ibuprofen [Motrin -] 600 mg PO QID PRN #28 tablet 12/16/17
[2017-12-16] MEDS ORDERED: SENNOSIDES/DOCUSATE COMBO (SENNA PLUS) TABLET (UD) PO PRN (22:00)
[2017-12-17] MEDS: FERROUS SO4 325 MG TABLET (FP) PO SCH ×2 (07:56→12:17)
[2017-12-17 07:59] LABS: ALBUMIN 2.1 g/dl (3.4-5.0); ANION GAP 8 (8-16); BLOOD UREA NITROGEN 10 mg/dL (7-18); CALCIUM 8.3 mg/dL (8.5-10.1); CHLORIDE 108 mmol/L (98-107); CO2 26 mmol/L (21-32); CREATININE 0.7 mg/dL (0.55-1.02); GLUCOSE,RANDOM 96 mg/dL (74-106); POTASSIUM 3.3 mmol/L (3.5-5.1); SGOT/AST 27 U/L (15-37); SGPT/ALT 45 U/L (12-78); SODIUM 142 mmol/L (136-145)
[2017-12-17 08:01] LABS: ALK PHOS 87 U/L (45-117); BILIRUBIN,TOTAL 0.4 mg/dL (0.2-1.0)
[2017-12-17 09:40] VITALS: BP 115/53; PULSE 94; TEMP 97.8
[2017-12-17] MEDS: MAGNESIUM OXIDE 400 MG TABLET (FP) PO SCH (10:52)
[2017-12-17] MEDS: PRENATAL VITAMINS W/ FOLIC ACID TABLET (FP) PO SCH (10:53)
== END 2017-12-17 17:15 | disposition home or self-care (01) | DRG 775 ==
LOC: JDEL 14:05 → JLDR 20:40 → J3W 23:12 → JLDR 12-15 10:55 → J3W 12-16 00:40
PROVIDERS: ADMIT Obstetrics & Gynecology; ATTEND Obstetrics & Gynecology
PROC: 10E0XZZ Delivery of Products of Conception, External Approach (ICD-10-PCS; principal; 2017-12-15)
PROC: 3E0P7VZ Introduction of Hormone into Female Reproductive, Via Natural or Artificial Opening (ICD-10-PCS; 2017-12-15)
DX: O26.893 Other specified pregnancy related conditions, third trimester (principal); E87.1 Hypo-osmolality and hyponatremia; Z3A.39 39 weeks gestation of pregnancy; E87.6 Hypokalemia; Z22.330 Carrier of Group B streptococcus; Z37.0 Single live birth
CPT/HCPCS: 36415; 59409; 80053; 80307; 81003; 81015; 83735; 85025; 85027; 85610; 85730; 86593; 86850; 86900; 86901; 87389; J7030

== ENCOUNTER 2017-12-31 14:53 | Emergency (ER) | payer OTHER ==
--- NOTE | 2017-12-31 15:12 | PDOC ---
Rapid Medical Evaluation Time Seen by Provider: 12/31/17 15:04 Medical Evaluation: Allergies Allergy/AdvReac Type Severity Reaction Status Date / Time No Known Allergies Allergy Verified 12/14/17 21:52 12/31/17 15:06 I have performed a brief in-person evaluation of this patient. The patient presents with a chief complaint of: bilateral pedal edema s/p vaginal delivery 2 weeks ago Pertinent physical exam findings: 3+ pitting pedal edema bilaterally. No erythema present. Lungs CTAB. No JVD. I have ordered the following: CBC, CMP, The patient will proceed to the ED for further evaluation. Discharge Disposition - Diagnosis Edema - Referrals - Patient Instructions - Post Discharge Activity
[2017-12-31 15:28] VITALS: BP 143/64; PULSE 77; TEMP 98.4; BMI 39.7
[2017-12-31 15:56] LABS: BASO % 0.7 % (0-2.0); EOS % 4.2 % (0-4.5); HEMATOCRIT 34.9 % (32.4-45.2); HEMOGLOBIN 10.9 GM/dL (10.7-15.3); LYMPH % 32.9 % (8-40); MCH 25.2 pg (25.7-33.7); MCHC 31.2 g/dl (32.0-36.0); MEAN CELL VOLUME 80.8 fl (80-96); MEAN PLT VOLUME 7.9 fl (7.5-11.1); MONO % 9.4 % (3.8-10.2); NEUT % 52.8 % (42.8-82.8); PLATELET COUNT 344 K/MM3 (134-434); RBC 4.32 M/mm3 (3.60-5.2); RDW 16.7 % (11.6-15.6); WHITE BLOOD COUNT 5.2 K/mm3 (4.0-10.0)
[2017-12-31 16:04] LABS: ALBUMIN 3.1 g/dl (3.4-5.0); ANION GAP 5 (8-16); BILIRUBIN,TOTAL 0.3 mg/dL (0.2-1.0); BLOOD UREA NITROGEN 16 mg/dL (7-18); CALCIUM 8.2 mg/dL (8.5-10.1); CHLORIDE 106 mmol/L (98-107); CO2 29 mmol/L (21-32); CREATININE 0.8 mg/dL (0.55-1.02); GLUCOSE,RANDOM 80 mg/dL (74-106); POTASSIUM 4.1 mmol/L (3.5-5.1); SGOT/AST 14 U/L (15-37); SGPT/ALT 25 U/L (12-78); SODIUM 140 mmol/L (136-145); TOT PROT 6.7 g/dl (6.4-8.2)
[2017-12-31 16:05] LABS: ALK PHOS 94 U/L (45-117)
--- NOTE | 2017-12-31 16:33 | PDOC ---
History of Present Illness - General Chief Complaint: Edema Stated Complaint: SWOLLEN LEGS Time Seen by Provider: 12/31/17 15:04 History Source: Patient - History of Present Illness Occurred: reports: other Severity: Yes: moderate Lower Extremity Pain Location: bilateral: leg Past History - Past Medical History Allergies/Adverse Reactions: Allergies Allergy/AdvReac Type Severity Reaction Status Date / Time No Known Allergies Allergy Verified 12/31/17 15:28 Home Medications: Ambulatory Orders Vit/Iron Fum/Folic AC [ Tablet] 1 each PO DAILY 12/14/17 Ibuprofen [Motrin -] 600 mg PO QID PRN #28 tablet 12/16/17 Potassium Chloride [K-Dur -] 20 meq PO BID #14 tablet.er 12/17/17 Asthma: No Cancer: No Cardiac Disorders: No COPD: No Diabetes: No HTN: No Seizures: No Thyroid Disease: No - Reproductive History (#): 12 Para: 3 Therapeutic (s) & number: Yes (8) - Suicide/Smoking/Psychosocial Hx Smoking Status: No Smoking History: Never smoked Have you smoked in the past 12 months: No Number of Cigarettes Smoked Daily: 0 Information on smoking cessation initiated: No Hx Alcohol Use: No Drug/Substance Use Hx: No Substance Use Type: None Hx Substance Use Treatment: No Review of Systems - Review of Systems Constitutional: No: Chills, Fever Respiratory: No: Shortness of Breath Cardiac (ROS): No: Chest Pain, Palpitations *Physical Exam - Vital Signs Last Vital Signs Temp Pulse Resp BP Pulse Ox 98.4 F 77 16 143/64 100 12/31/17 15:24 12/31/17 15:24 12/31/17 15:24 12/31/17 15:24 12/31/17 15:24 - Physical Exam General Appearance: Yes: Appropriately Dressed. No: Apparent Distress HEENT: positive: Normal Voice Neck: positive: Supple Respiratory/Chest: positive: Lungs Clear, Normal Breath Sounds. negative: Respiratory Distress Cardiovascular: positive: Regular Rate, S1, S2 Extremity: positive: Pedal Edema (2+ b/l) Integumentary: positive: Dry, Warm Neurologic: positive: Fully Oriented, Alert, Normal Mood/Affect ED Treatment Course - LABORATORY CBC & Chemistry Diagram: 12/31/17 15:30 12/31/17 15:30 - ADDITIONAL ORDERS Additional order review: Laboratory Results 12/31/17 15:30 Sodium 140 Potassium 4.1 Chloride 106 Carbon Dioxide 29 Anion Gap 5 L BUN 16 Creatinine 0.8 Creat Clearance w eGFR > 60 Random Glucose 80 Calcium 8.2 L Total Bilirubin 0.3 D AST 14 L ALT 25 Alkaline Phosphatase 94 Total Protein 6.7 Albumin 3.1 L 12/31/17 15:30 RBC 4.32 MCV 80.8 MCHC 31.2 L RDW 16.7 H MPV 7.9 Neutrophils % 52.8 D Lymphocytes % 32.9 D Monocytes % 9.4 Eosinophils % 4.2 D Basophils % 0.7 - RADIOLOGY Radiology Studies Ordered: Category Date Time Status DUPLEX VASCUL US-2LEGS [US] Stat Ultrasound 12/31/17 16:26 Ordered Medical Decision Making - Medical Decision Making 12/31/17 16:27 32-year-old female 2 weeks (vaginal delivery), here with bilateral lower extremity swelling that she noticed got worse after she gave . Only hurts with palpation. No chest pain, shortness of breath, palpitations, nausea , vomiting, fever or chills. Denies KUO, dizziness, visual changes or abd pain. Feels well otherwise.Patient well-appearing and stable with 2+ edema to bilateral lower extremity. Labs ordered at triage and negative. US r/o DVT pending 12/31/17 17:33 US read as neg for any obvious DVT. There is limitation to study due to obscured left posterior tibial veins in left leg. Patient aware and will follow -up with her PMD or OB in 1 week for follow-up studies as needed. To elevate extremities in the meantime *DC/Admit/Observation/Transfer Diagnosis at time of Disposition: Edema Qualifiers: Edema type: unspecified Qualified Code(s): R60.9 - Edema, unspecified - Discharge Dispostion Disposition: HOME Condition at time of disposition: Good - Referrals Referrals: Ivanna Whitlock DO [Primary Care Provider] - - Patient Instructions Printed Discharge Instructions: DI for Peripheral Edema -- Bilateral Additional Instructions: Your labs were unremarkable and there is no obvious clot on your ultrasounds. You will need to follow-up with your PMD or WEATHER STRIP MECHANIC in one week for repeat study as needed as there were some mild limitation to your left leg ultrasound. In the meantime, elevate extremities at home as frequently as possible. Return to the ER for worsening of symptoms - Post Discharge Activity
[2017-12-31 17:38] LABS: URINE APPEARANCE CLEAR; URINE BILIRUBIN NEGATIVE (<2.0 mg/dL); URINE COLOR LTYELLOW; URINE GLUCOSE (UA) NEGATIVE (NEGATIVE); URINE KETONE NEGATIVE (NEGATIVE); URINE NITRITE NEGATIVE (NEGATIVE); URINE PROTEIN NEGATIVE (NEGATIVE); URINE UROBILINOGEN NEGATIVE mg/dL (0.2-1.0)
[2017-12-31 17:40] LABS: URINE LEUK ESTERASE 3+ (NEGATIVE)
[2017-12-31 17:57] LABS: EPI CELLS RARE /HPF (FEW); URINE MUCUS RARE
== END 2017-12-31 17:47 | disposition home or self-care (01) ==
LOC: JERFT 14:53
DX: O12.05 Gestational edema, complicating the puerperium (principal)
CPT/HCPCS: 36415; 80053; 81003; 81015; 85025; 93970-TC; 99281-25

== ENCOUNTER 2019-04-14 17:08 | Emergency (ER) | payer OTHER ==
--- NOTE | 2019-04-14 17:20 | PDOC ---
Rapid Medical Evaluation Chief Complaint: Ear Problem Time Seen by Provider: 04/14/19 17:18 Medical Evaluation: Allergies Allergy/AdvReac Type Severity Reaction Status Date / Time No Known Allergies Allergy Verified 12/31/17 15:28 04/14/19 17:19 This patient had a brief in-person evaluation in triage cc: cotton tip in right ear states she was cleaning her ear. + pain HPI: Nad HEENT: no redness or swelling of external ear orders: This patient will proceed to ED for further evaluation. Discharge Disposition - Diagnosis Ear pain, right - Referrals - Patient Instructions - Post Discharge Activity
[2019-04-14 17:21] VITALS: BP 119/65; PULSE 81; TEMP 98.2; BMI 36.0
--- NOTE | 2019-04-14 17:37 | PDOC ---
History of Present Illness - General Chief Complaint: Ear Problem Stated Complaint: R/EAR/DISCOMFORT Time Seen by Provider: 04/14/19 17:18 - History of Present Illness Initial Comments: 04/14/19 17:35 34-year-old female presents for right ear irritation she feel she does Q-tip stuck in her right ear Past History - Past Medical History Allergies/Adverse Reactions: Allergies Allergy/AdvReac Type Severity Reaction Status Date / Time No Known Allergies Allergy Verified 04/14/19 17:21 Home Medications: Ambulatory Orders Vit/Iron Fum/Folic AC [ Tablet] 1 each PO DAILY 12/14/17 Ibuprofen [Motrin -] 600 mg PO QID PRN #28 tablet 12/16/17 Potassium Chloride [K-Dur -] 20 meq PO BID #14 tablet.er 12/17/17 Asthma: No Cancer: No Cardiac Disorders: No COPD: No Diabetes: No HTN: No Seizures: No Thyroid Disease: No - Reproductive History (#): 12 Para: 3 Therapeutic (s) & number: Yes (8) - Suicide/Smoking/Psychosocial Hx Smoking Status: No Smoking History: Never smoked Have you smoked in the past 12 months: No Number of Cigarettes Smoked Daily: 0 Information on smoking cessation initiated: No Hx Alcohol Use: No Drug/Substance Use Hx: No Substance Use Type: None Hx Substance Use Treatment: No Review of Systems - Review of Systems HEENTM: Yes: See HPI, Ear Pain *Physical Exam - Vital Signs Last Vital Signs Temp Pulse Resp BP Pulse Ox 98.2 F 81 17 119/65 100 04/14/19 17:19 04/14/19 17:19 04/14/19 17:19 04/14/19 17:19 04/14/19 17:19 - Physical Exam Comments: 04/14/19 17:36 HEAD: NC/AT EYES: Conjuntiva clear Ears: Canals and TM's normal MS: Full ROM in all joints without edema NEUROLOGIC: No gross sensory or motor deficits, NVID SKIN: Normal color and temperature no lesions or rashes Medical Decision Making - Medical Decision Making 04/14/19 17:36 No foreign Body noted. Patient states the foreign body may have been removed she just wanted to be checked *DC/Admit/Observation/Transfer Diagnosis at time of Disposition: Ear pain, right - Discharge Dispostion Disposition: HOME Condition at time of disposition: Stable - Referrals Referrals: Michael Tran MD [Staff Physician] - - Patient Instructions Additional Instructions: Return to the emergency room for further issues follow-up with ear nose and throat should you have further issues - Post Discharge Activity
== END 2019-04-14 18:17 | disposition home or self-care (01) ==
LOC: JERFT 17:08
DX: H92.01 Otalgia, right ear (principal)
CPT/HCPCS: 99281-25

== ENCOUNTER 2021-09-19 09:39 | Emergency (ER) | payer OTHER ==
[2021-09-19 09:49] VITALS: BP 133/79; PULSE 70; TEMP 99.8; BMI 29.7
[2021-09-19] MEDS ORDERED: SODIUM CHLORIDE 1,000 ML IV STA (10:41)
[2021-09-19] MEDS ORDERED: ONDANSETRON 4 MG/2 ML VIAL IVPUSH ONE (10:42)
[2021-09-19] MEDS ORDERED: ONDANSETRON 4 MG/2 ML VIAL ONE (10:43)
[2021-09-19 11:24] LABS: BASO % 0.2 % (0-2.0); HEMATOCRIT 41.7 % (32.4-45.2); HEMOGLOBIN 13.1 GM/dL (10.7-15.3); MCH 25.5 pg (25.7-33.7); MCHC 31.3 g/dl (32.0-36.0); MEAN CELL VOLUME 81.4 fl (80-96); MEAN PLT VOLUME 8.5 fl (7.5-11.1); MONO % 8.2 % (3.8-10.2); NEUT % 74.6 % (42.8-82.8); PLATELET COUNT 345 10^3/uL (134-434); RBC 5.12 M/mm3 (3.60-5.2); RDW 15.4 % (11.6-15.6); WHITE BLOOD COUNT 9.9 K/mm3 (4.0-10.0)
[2021-09-19 11:48] LABS: ALBUMIN 4.2 g/dl (3.4-5.0); BLOOD UREA NITROGEN 11.1 mg/dL (7-18)
[2021-09-19 11:51] LABS: CREATININE 0.8 mg/dL (0.55-1.3)
[2021-09-19 11:52] LABS: BILIRUBIN,TOTAL 0.6 mg/dL (0.2-1); TOT PROT 8.3 g/dl (6.4-8.2)
[2021-09-19 13:03] LABS: EPI CELLS >36 /uL (0-25.1); HYALINE CASTS 6 /uL (0-3.1); PH,URINE >= 9.0 (5.0-8.0); URINE APPEARANCE CLEAR; URINE BACTERIA >9,000 /uL (0-1359); URINE BILIRUBIN NEGATIVE (NEGATIVE); URINE COLOR YELLOW; URINE GLUCOSE (UA) NEGATIVE (NEGATIVE); URINE KETONE 3+ (NEGATIVE); URINE LEUK ESTERASE NEGATIVE (NEGATIVE); URINE NITRITE NEGATIVE (NEGATIVE); URINE PROTEIN 2+ (NEGATIVE); URINE RBC 33 /uL (0-23.9); URINE WBC 35 /uL (0-25.8)
[2021-09-19 13:56] LABS: COCAINE, UR NEGATIVE (NEGATIVE); OPIATES, URI NEGATIVE (NEGATIVE); PHENCYCLIDINE,URINE NEGATIVE (NEGATIVE); URINE BARBITURATES NEGATIVE (NEGATIVE); URINE BENZODIAZEPINES NEGATIVE (NEGATIVE)
[2021-09-19 14:00] LABS: METHADONE, UR NEGATIVE (NEGATIVE); URINE AMPHETAMINES NEGATIVE (NEGATIVE)
== END 2021-09-19 13:15 | disposition home or self-care (01) ==
LOC: JERFT 09:39 → JER 09:39 → JERFT 13:15
PROC: 3E033GC Introduction of Other Therapeutic Substance into Peripheral Vein, Percutaneous Approach (ICD-10-PCS; principal; 2021-09-19)
PROC: 3E0337Z Introduction of Electrolytic and Water Balance Substance into Peripheral Vein, Percutaneous Approach (ICD-10-PCS; 2021-09-19)
DX: R11.2 Nausea with vomiting, unspecified (principal)
CPT/HCPCS: 36415; 80053; 80307; 81003; 83690; 84703; 85025; 87086; 87186; 99284-25

== ENCOUNTER 2023-08-02 10:08 | Emergency (ER) | payer OTHER ==
[2023-08-02 10:20] VITALS: BP 102/68; PULSE 91; RESP 18; TEMP 98.3; BMI 33.6
[2023-08-02] MEDS ORDERED: SODIUM CHLORIDE 0.9% 500 ML INFUS.BAG IV ONE (10:29)
[2023-08-02] MEDS ORDERED: ONDANSETRON 4 MG/2 ML VIAL IVPUSH ONE (10:29)
[2023-08-02] MEDS ORDERED: ONDANSETRON 4 MG/2 ML VIAL ONE (10:32)
[2023-08-02 10:54] LABS: BASO % 0.5 % (0-2.0); EOS % 0.3 % (0-4.5); HEMOGLOBIN 14.2 GM/dL (10.7-15.3); MCHC 33.7 g/dl (32.0-36.0); MEAN CELL VOLUME 80.2 fl (80-96); MEAN PLT VOLUME 8.4 fl (7.5-11.1); MONO % 12.5 % (3.8-10.2); NEUT % 59.7 % (42.8-82.8); PLATELET COUNT 356 10^3/uL (134-434); RBC 5.24 M/mm3 (3.60-5.2); RDW 13.8 % (11.6-15.6); WHITE BLOOD COUNT 8.2 K/mm3 (4.0-10.0)
[2023-08-02 11:47] LABS: POTASSIUM 3.8 mmol/L (3.5-5.1)
[2023-08-02 11:49] LABS: ALBUMIN 3.7 g/dl (3.4-5.0); BLOOD UREA NITROGEN 15.3 mg/dL (7-18); CALCIUM 9.3 mg/dL (8.5-10.1)
[2023-08-02 11:52] LABS: CREATININE 0.9 mg/dL (0.55-1.3)
[2023-08-02 11:54] LABS: BILIRUBIN,TOTAL 1.1 mg/dL (0.2-1)
[2023-08-02] MEDS ORDERED: POTASSIUM CHLORIDE ORAL LIQUID 20 MEQ/15 ML PO ONE (12:04)
[2023-08-02] MEDS ORDERED: METOCLOPRAMIDE HCL INJECTION 10 MG/2 ML VIAL IVPUSH ONE (12:07)
[2023-08-02] MEDS ORDERED: POTASSIUM CHLORIDE ORAL LIQUID 20 MEQ/15 ML ONE (12:08)
[2023-08-02] MEDS ORDERED: METOCLOPRAMIDE HCL INJECTION 10 MG/2 ML VIAL ONE (12:11)
[2023-08-02 13:45] LABS: EPI CELLS 28 /uL (0-25.1); HYALINE CASTS 14 /uL (0-3.1); PH,URINE 5.5 (5.0-8.0); URINE APPEARANCE CLOUDY; URINE BACTERIA 27 /uL (0-1359); URINE BILIRUBIN NEGATIVE (NEGATIVE); URINE COLOR DK YELLOW; URINE GLUCOSE (UA) NEGATIVE (NEGATIVE); URINE KETONE 1+ (NEGATIVE); URINE LEUK ESTERASE NEGATIVE (NEGATIVE); URINE NITRITE NEGATIVE (NEGATIVE); URINE PROTEIN TRACE (NEGATIVE); URINE RBC 19 /uL (0-23.9)
[2023-08-02 14:09] LABS: URINE WBC 18.9 /uL (0-25.8)
== END 2023-08-02 14:10 | disposition home or self-care (01) ==
LOC: JER 10:08
PROC: 3E033GC Introduction of Other Therapeutic Substance into Peripheral Vein, Percutaneous Approach (ICD-10-PCS; principal; 2023-08-02)
PROC: 3E033GC Introduction of Other Therapeutic Substance into Peripheral Vein, Percutaneous Approach (ICD-10-PCS; 2023-08-02)
DX: O26.891 Other specified pregnancy related conditions, first trimester (principal); O21.9 Vomiting of pregnancy, unspecified; R10.10 Upper abdominal pain, unspecified; R11.0 Nausea; Z20.822 Contact with and (suspected) exposure to COVID-19; Z3A.00 Weeks of gestation of pregnancy not specified
CPT/HCPCS: 0241U-QW; 36415; 80053; 81003; 83690; 84702; 85025; 87086; 99284-25

== ENCOUNTER 2023-08-13 15:48 | Observation (INO) | payer OTHER ==
[2023-08-13 16:21] VITALS: BMI 28.1
[2023-08-13] MEDS ORDERED: SODIUM CHLORIDE 0.9% 500 ML INFUS.BAG IV ONE (16:54)
[2023-08-13] MEDS ORDERED: METOCLOPRAMIDE HCL INJECTION 10 MG/2 ML VIAL IVPUSH ONE (17:00)
[2023-08-13] MEDS ORDERED: DEXTROSE 5%-LACTATED RINGERS 1,000 ML IV SCH (17:00)
[2023-08-13] MEDS ORDERED: FAMOTIDINE 20 MG/50 ML IVPB 20 MG/50 ML MG IVPB ONE ×2 (17:00→17:31)
[2023-08-13] MEDS ORDERED: METOCLOPRAMIDE HCL INJECTION 10 MG/2 ML VIAL ONE (17:30)
[2023-08-13 18:03] LABS: BASO % 0.3 % (0-2.0); EOS % 0.1 % (0-4.5); HEMATOCRIT 40.4 % (32.4-45.2); HEMOGLOBIN 13.9 GM/dL (10.7-15.3); LYMPH % 29.4 % (8-40); MCH 27.3 pg (25.7-33.7); MCHC 34.3 g/dl (32.0-36.0); MEAN CELL VOLUME 79.6 fl (80-96); MEAN PLT VOLUME 7.7 fl (7.5-11.1); MONO % 13.3 % (3.8-10.2); NEUT % 56.9 % (42.8-82.8); PLATELET COUNT 275 10^3/uL (134-434); RBC 5.07 M/mm3 (3.60-5.2); RDW 14.4 % (11.6-15.6); WHITE BLOOD COUNT 6.2 K/mm3 (4.0-10.0)
[2023-08-13 18:31] LABS: ALBUMIN 3.7 g/dl (3.4-5.0); BLOOD UREA NITROGEN 8.6 mg/dL (7-18); CALCIUM 9.1 mg/dL (8.5-10.1); MAGNESIUM 1.9 mg/dL (1.8-2.4)
[2023-08-13 18:34] LABS: CREATININE 0.6 mg/dL (0.55-1.3); PHOSPHOROUS 2.5 mg/dL (2.5-4.9)
[2023-08-13] MEDS ORDERED: POTASSIUM CHLORIDE TABS 20 MEQ TABLET.ER (FP) PO ONE ×4 (18:34→21:20)
[2023-08-13] MEDS ORDERED: MAGNESIUM SULFATE IN WATER 2 GM/50 ML IVPB IVPB ONE ×2 (18:35→18:37)
[2023-08-13 18:36] LABS: BILIRUBIN,TOTAL 0.7 mg/dL (0.2-1); TOT PROT 7.3 g/dl (6.4-8.2)
[2023-08-13] MEDS ORDERED: POTASSIUM CHLORIDE ORAL LIQUID 20 MEQ/15 ML PO ONE ×2 (18:53→21:48)
[2023-08-13] MEDS ORDERED: POTASSIUM CHLORIDE ORAL LIQUID 20 MEQ/15 ML ONE ×2 (18:58→22:01)
[2023-08-13 19:23] LABS: CHLORIDE 92 mmol/L (98-107); SODIUM 132 mmol/L (136-145)
[2023-08-13 19:24] LABS: CALCIUM 8.5 mg/dL (8.5-10.1)
[2023-08-13 19:25] LABS: BLOOD UREA NITROGEN 8.6 mg/dL (7-18); CO2 30 mmol/L (21-32); GLUCOSE,RANDOM 276 mg/dL (74-106)
[2023-08-13 19:53] LABS: ANION GAP 9 mmol/L (4-13); CREATININE 0.8 mg/dL (0.55-1.3); POTASSIUM 2.5 mmol/L (3.5-5.1)
[2023-08-13] MEDS ORDERED: LACTATED RINGERS SOLUTION 1000 ML INFUS.BAG IV ONE (20:03)
[2023-08-13 22:38] LABS: CHLORIDE 94 mmol/L (98-107); SODIUM 135 mmol/L (136-145)
[2023-08-13 22:39] LABS: CALCIUM 9.1 mg/dL (8.5-10.1)
[2023-08-13 22:40] LABS: BLOOD UREA NITROGEN 6.3 mg/dL (7-18); CO2 32 mmol/L (21-32); GLUCOSE,RANDOM 87 mg/dL (74-106)
[2023-08-13 22:43] LABS: CREATININE 0.6 mg/dL (0.55-1.3)
[2023-08-13 22:49] LABS: URINE APPEARANCE CLEAR; URINE BILIRUBIN NEGATIVE (NEGATIVE); URINE COLOR YELLOW; URINE GLUCOSE (UA) 1+ (NEGATIVE); URINE KETONE 2+ (NEGATIVE)
[2023-08-13 22:50] LABS: PH,URINE 7.5 (5.0-8.0); URINE LEUK ESTERASE TRACE (NEGATIVE); URINE NITRITE NEGATIVE (NEGATIVE); URINE PROTEIN NEGATIVE (NEGATIVE)
[2023-08-13 22:51] LABS: EPI CELLS FEW /uL (0-25.1); URINE RBC 0-5 /uL (0-23.9)
[2023-08-13 22:52] LABS: URINE BACTERIA MODERATE /uL (0-1359)
[2023-08-13 22:58] LABS: ANION GAP 9 mmol/L (4-13); POTASSIUM 2.9 mmol/L (3.5-5.1)
[2023-08-13] MEDS ORDERED: KCL 10 MEQ IVPB 10 MEQ/100 ML INFUS.BAG IVPB SCH (23:45)
[2023-08-14] MEDS ORDERED: KCL 10 MEQ IVPB 10 MEQ/100 ML INFUS.BAG IVPB ONE (00:56)
[2023-08-14] MEDS ORDERED: POTASSIUM CHLORIDE ORAL LIQUID 20 MEQ/15 ML PO ONE (01:27)
[2023-08-14] MEDS ORDERED: SODIUM CHLORIDE 1,000 ML with POTASSIUM CHLORIDE 40 MEQ IV SCH (01:30)
[2023-08-14] MEDS ORDERED: ONDANSETRON 4 MG/2 ML VIAL IVPUSH PRN (01:49)
[2023-08-14] MEDS ORDERED: POTASSIUM CHLORIDE ORAL LIQUID 20 MEQ/15 ML ONE (02:28)
[2023-08-14 02:45] LABS: PHENCYCLIDINE,URINE NEGATIVE (NEGATIVE)
[2023-08-14 02:46] LABS: METHADONE, UR NEGATIVE (NEGATIVE); OPIATES, URI NEGATIVE (NEGATIVE); URINE BARBITURATES NEGATIVE (NEGATIVE); URINE BENZODIAZEPINES NEGATIVE (NEGATIVE)
[2023-08-14 02:47] LABS: COCAINE, UR NEGATIVE (NEGATIVE); URINE AMPHETAMINES NEGATIVE (NEGATIVE)
[2023-08-14] MEDS ORDERED: CEFTRIAXONE 1 GM/50 ML BAG ONE ×2 (04:59→08:55)
[2023-08-14 06:54] LABS: HEMATOCRIT 38.3 % (32.4-45.2); HEMOGLOBIN 12.3 GM/dL (10.7-15.3); MCHC 32.1 g/dl (32.0-36.0); MEAN CELL VOLUME 80.9 fl (80-96); MEAN PLT VOLUME 8.1 fl (7.5-11.1); PLATELET COUNT 245 10^3/uL (134-434); RBC 4.74 M/mm3 (3.60-5.2); RDW 14.3 % (11.6-15.6); WHITE BLOOD COUNT 6.4 K/mm3 (4.0-10.0)
[2023-08-14 07:18] LABS: POTASSIUM 3.1 mmol/L (3.5-5.1)
[2023-08-14 07:20] LABS: CALCIUM 8.6 mg/dL (8.5-10.1); MAGNESIUM 2.3 mg/dL (1.8-2.4)
[2023-08-14 07:21] LABS: BLOOD UREA NITROGEN 6.4 mg/dL (7-18)
[2023-08-14 07:23] LABS: PHOSPHOROUS 3.6 mg/dL (2.5-4.9)
[2023-08-14 07:24] LABS: CREATININE 0.5 mg/dL (0.55-1.3)
[2023-08-14] MEDS: diphenhydrAMINE HCL 12.5 MG/5 ML UNIT-DOSE CUPS PO SCH ×3 (07:30→17:13)
[2023-08-14] MEDS ORDERED: diphenhydrAMINE HCL 25 MG CAPSULE (FP) PO ONE (08:54)
[2023-08-14] MEDS: PYRIDOXINE HCL (B-6) 50 MG TABLET (FP) PO SCH ×3 (09:08→17:13)
[2023-08-14] MEDS: POTASSIUM CHLORIDE 40 MEQ in SODIUM CHLORIDE 1,000 ML IV SCH ×2 (14:23→23:51)
[2023-08-14 22:04] LABS: POTASSIUM 3.4 mmol/L (3.5-5.1)
[2023-08-14 22:08] LABS: BLOOD UREA NITROGEN 10.4 mg/dL (7-18)
[2023-08-14 22:11] LABS: CREATININE 0.6 mg/dL (0.55-1.3)
[2023-08-14 22:13] LABS: BILIRUBIN,TOTAL 0.2 mg/dL (0.2-1); TOT PROT 5.5 g/dl (6.4-8.2)
[2023-08-14 22:14] LABS: ALBUMIN 2.7 g/dl (3.4-5.0)
[2023-08-15] MEDS: diphenhydrAMINE HCL 12.5 MG/5 ML UNIT-DOSE CUPS PO SCH ×3 (06:09→17:17)
[2023-08-15] MEDS: PYRIDOXINE HCL (B-6) 50 MG TABLET (FP) PO SCH ×3 (06:11→17:17)
[2023-08-15 06:37] VITALS: RESP 18
[2023-08-15] MEDS ORDERED: CEFTRIAXONE 1 GM in DEXTROSE 5%-WATER - 50 ML IVPB SCH (10:00)
[2023-08-15 19:17] VITALS: BP 94/47; PULSE 80; TEMP 98.4
== END 2023-08-15 19:55 | disposition home or self-care (01) ==
LOC: JER 15:48 → JERBED 08-14 00:19 → J7W 08-14 15:14
PROVIDERS: ADMIT Internal Medicine; ATTEND Internal Medicine
PROC: 3E03329 Introduction of Other Anti-infective into Peripheral Vein, Percutaneous Approach (ICD-10-PCS; principal; 2023-08-14)
PROC: 3E0337Z Introduction of Electrolytic and Water Balance Substance into Peripheral Vein, Percutaneous Approach (ICD-10-PCS; 2023-08-14)
DX: E87.6 Hypokalemia (principal); N39.0 Urinary tract infection, site not specified; O26.891 Other specified pregnancy related conditions, first trimester; O21.0 Mild hyperemesis gravidarum; O09.521 Supervision of elderly multigravida, first trimester; F12.90 Cannabis use, unspecified, uncomplicated; Z3A.01 Less than 8 weeks gestation of pregnancy
CPT/HCPCS: 36415; 76817-TC; 80048; 80053; 80307; 81003; 83690; 83735; 84100; 84702; 85025; 85027; 87086; 93005; 93010; 99285-25; G0378

== ENCOUNTER 2023-08-31 11:36 | Inpatient (IN) | payer OTHER ==
[2023-08-31 11:51] VITALS: BMI 30.5
[2023-08-31] MEDS ORDERED: SODIUM CHLORIDE 0.9% 1000 ML INFUS.BAG IV ONE (11:59)
[2023-08-31] MEDS ORDERED: ONDANSETRON 4 MG/2 ML VIAL IVPUSH ONE ×2 (11:59→17:14)
[2023-08-31 12:45] LABS: BASO % 0.3 % (0-2.0); HEMATOCRIT 38.3 % (32.4-45.2); HEMOGLOBIN 12.4 GM/dL (10.7-15.3); LYMPH % 6.9 % (8-40); MCH 26.1 pg (25.7-33.7); MCHC 32.3 g/dl (32.0-36.0); MEAN CELL VOLUME 80.6 fl (80-96); MEAN PLT VOLUME 7.1 fl (7.5-11.1); MONO % 6.2 % (3.8-10.2); NEUT % 86.6 % (42.8-82.8); PLATELET COUNT 511 10^3/uL (134-434); RBC 4.75 M/mm3 (3.60-5.2); RDW 15.6 % (11.6-15.6); WHITE BLOOD COUNT 14.1 K/mm3 (4.0-10.0)
[2023-08-31 13:03] LABS: POTASSIUM 3.9 mmol/L (3.5-5.1)
[2023-08-31 13:05] LABS: ALBUMIN 3.8 g/dl (3.4-5.0); CALCIUM 10.1 mg/dL (8.5-10.1)
[2023-08-31 13:08] LABS: CREATININE 0.5 mg/dL (0.55-1.3)
[2023-08-31 13:09] LABS: TOT PROT 7.9 g/dl (6.4-8.2)
[2023-08-31 13:10] LABS: BILIRUBIN,TOTAL 0.4 mg/dL (0.2-1)
[2023-08-31] MEDS ORDERED: METOCLOPRAMIDE HCL INJECTION 10 MG/2 ML VIAL IVPUSH ONE (13:50)
[2023-08-31] MEDS ORDERED: METOCLOPRAMIDE HCL INJECTION 10 MG/2 ML VIAL ONE (14:18)
[2023-08-31] MEDS ORDERED: FOLIC ACID INJECTION - 1 MG, THIAMINE HCL 100 MG, MULTIVIT INJECTION ADULT 10 ML in SOD... IVPB ONE (14:29)
[2023-08-31] MEDS ORDERED: DEXTROSE 5%-0.45% SALINE 1,000 ML IV SCH (14:30)
[2023-08-31 17:46] LABS: EPI CELLS >36 /uL (0-25.1); HYALINE CASTS 15 /uL (0-3.1); URINE APPEARANCE CLOUDY; URINE BACTERIA 260 /uL (0-1359); URINE BILIRUBIN NEGATIVE (NEGATIVE); URINE COLOR YELLOW; URINE GLUCOSE (UA) NEGATIVE (NEGATIVE); URINE KETONE 4+ (NEGATIVE); URINE LEUK ESTERASE NEGATIVE (NEGATIVE); URINE NITRITE NEGATIVE (NEGATIVE); URINE PROTEIN 1+ (NEGATIVE); URINE UROBILINOGEN 0.2 mg/dL (0.2-1.0)
[2023-08-31 21:28] LABS: URINE RBC 20.8 /uL (0-23.9); URINE WBC 158.3 /uL (0-25.8)
[2023-08-31] MEDS: DEXTROSE 5%-0.45% SALINE 1,000 ML IV SCH (21:48)
[2023-08-31] MEDS: ONDANSETRON 4 MG/2 ML VIAL IVPUSH PRN (23:22)
[2023-09-01] MEDS: ONDANSETRON 4 MG/2 ML VIAL IVPUSH PRN (06:31)
[2023-09-01] MEDS ORDERED: ONDANSETRON 4 MG/2 ML VIAL IVPUSH SCH (08:15)
[2023-09-01 09:40] LABS: POTASSIUM 3.4 mmol/L (3.5-5.1)
[2023-09-01 09:52] LABS: HEMATOCRIT 34.7 % (32.4-45.2); HEMOGLOBIN 11.1 GM/dL (10.7-15.3); MCH 25.8 pg (25.7-33.7); MEAN CELL VOLUME 80.4 fl (80-96); MEAN PLT VOLUME 7.8 fl (7.5-11.1); PLATELET COUNT 437 10^3/uL (134-434); RBC 4.32 M/mm3 (3.60-5.2); RDW 15.7 % (11.6-15.6); WHITE BLOOD COUNT 9.2 K/mm3 (4.0-10.0)
[2023-09-01 09:53] LABS: BLOOD UREA NITROGEN 4.6 mg/dL (7-18)
[2023-09-01 09:56] LABS: CREATININE 0.4 mg/dL (0.55-1.3)
[2023-09-01 09:57] LABS: BILIRUBIN,TOTAL 0.5 mg/dL (0.2-1); TOT PROT 6.3 g/dl (6.4-8.2)
[2023-09-01] MEDS: ONDANSETRON 4 MG/2 ML VIAL IVPUSH SCH ×3 (10:02→17:26)
[2023-09-01 10:24] LABS: CALCIUM 8.5 mg/dL (8.5-10.1)
[2023-09-01 10:47] LABS: ANISOCYTOSIS 3+; MACROCYTOSIS 0
[2023-09-01] MEDS: DEXTROSE 5%-0.45% SALINE 1,000 ML IV SCH (17:28)
[2023-09-01 18:43] VITALS: RESP 18
[2023-09-02] MEDS: ONDANSETRON 4 MG/2 ML VIAL IVPUSH PRN ×2 (03:17→08:08)
[2023-09-02] MEDS: ONDANSETRON 4 MG/2 ML VIAL IVPUSH SCH ×3 (12:00→20:00)
[2023-09-02] MEDS: DEXTROSE 5%-0.45% SALINE 1,000 ML IV SCH (12:01)
[2023-09-02 12:56] LABS: BLOOD UREA NITROGEN 3.1 mg/dL (7-18)
[2023-09-02 12:59] LABS: CREATININE 0.4 mg/dL (0.55-1.3)
[2023-09-02 13:01] LABS: BILIRUBIN,TOTAL 0.4 mg/dL (0.2-1); TOT PROT 6.2 g/dl (6.4-8.2)
[2023-09-02] MEDS: KCL 10 MEQ IVPB 10 MEQ/100 ML INFUS.BAG IVPB SCH ×2 (15:18→17:58)
[2023-09-02] MEDS: D5-1/2NS+10 MEQ KCL - 10 MEQ/1,000 ML INFUS.BAG IV SCH (17:05)
[2023-09-03] MEDS: ONDANSETRON 4 MG/2 ML VIAL IVPUSH SCH ×7 (00:32→22:09)
[2023-09-03] MEDS: KCL 10 MEQ IVPB 10 MEQ/100 ML INFUS.BAG IVPB SCH ×4 (03:14→17:10)
[2023-09-03 08:50] LABS: MCH 26.3 pg (25.7-33.7); MCHC 32.4 g/dl (32.0-36.0); MEAN CELL VOLUME 81.2 fl (80-96); MEAN PLT VOLUME 7.9 fl (7.5-11.1); PLATELET COUNT 403 10^3/uL (134-434); RBC 4.18 M/mm3 (3.60-5.2); RDW 15.2 % (11.6-15.6); WHITE BLOOD COUNT 9.8 K/mm3 (4.0-10.0)
[2023-09-03 09:33] LABS: POTASSIUM 3.2 mmol/L (3.5-5.1)
[2023-09-03 09:34] LABS: CALCIUM 8.9 mg/dL (8.5-10.1)
[2023-09-03 09:35] LABS: BLOOD UREA NITROGEN 3.1 mg/dL (7-18)
[2023-09-03 09:37] LABS: CREATININE 0.4 mg/dL (0.55-1.3)
[2023-09-03 09:38] LABS: ANISOCYTOSIS 0; MACROCYTOSIS 0
[2023-09-03 09:39] LABS: BILIRUBIN,TOTAL 0.3 mg/dL (0.2-1); TOT PROT 6.1 g/dl (6.4-8.2)
[2023-09-03] MEDS: D5-1/2NS+10 MEQ KCL - 10 MEQ/1,000 ML INFUS.BAG IV SCH (12:10)
[2023-09-03] MEDS ORDERED: POTASSIUM CHLORIDE ORAL LIQUID 20 MEQ/15 ML PO ONE (13:00)
[2023-09-04] MEDS: ONDANSETRON 4 MG/2 ML VIAL IVPUSH SCH ×4 (00:19→12:30)
[2023-09-04 08:45] LABS: CHLORIDE 102 mmol/L (98-107); POTASSIUM 3.5 mmol/L (3.5-5.1); SODIUM 135 mmol/L (136-145)
[2023-09-04 08:50] LABS: ALBUMIN 3.5 g/dl (3.4-5.0)
[2023-09-04 08:52] LABS: ANION GAP 9 mmol/L (4-13); CO2 24 mmol/L (21-32); GLUCOSE,RANDOM 96 mg/dL (74-106)
[2023-09-04 08:54] LABS: SGOT/AST 10 U/L (15-37); SGPT/ALT 28 U/L (13-61)
[2023-09-04 08:56] LABS: CREATININE 0.5 mg/dL (0.55-1.3); TOT PROT 7.2 g/dl (6.4-8.2)
[2023-09-04 08:57] LABS: ALK PHOS 47 U/L (45-117); BILIRUBIN,TOTAL 0.4 mg/dL (0.2-1)
[2023-09-04 08:58] LABS: BLOOD UREA NITROGEN 2.9 mg/dL (7-18)
[2023-09-04 10:49] VITALS: BP 123/62; PULSE 80; TEMP 98.3
== END 2023-09-04 14:10 | disposition home or self-care (01) | DRG 833 ==
LOC: JER 11:36 → JERBED 17:10 → J3W 23:10 → UNDODISIN 09-02 11:40
PROVIDERS: ADMIT Internal Medicine; ATTEND Internal Medicine
DX: O21.0 Mild hyperemesis gravidarum (principal); Z3A.10 10 weeks gestation of pregnancy
CPT/HCPCS: 0241U-QW; 36415; 80053; 81003; 85025; 93005; 93010; 99285-25

== ENCOUNTER 2023-09-14 11:32 | Emergency (ER) | payer OTHER ==
[2023-09-14 11:58] VITALS: TEMP 97.4; BMI 31.0
[2023-09-14] MEDS ORDERED: ONDANSETRON 4 MG/2 ML VIAL IVPUSH ONE (12:58)
[2023-09-14] MEDS ORDERED: SODIUM CHLORIDE 1,000 ML IV STA (12:58)
[2023-09-14] MEDS ORDERED: PYRIDOXINE HCL (B-6) 100 MG TABLET PO ONE (12:59)
[2023-09-14] MEDS ORDERED: ONDANSETRON 4 MG/2 ML VIAL ONE (13:13)
[2023-09-14 13:30] LABS: BASO % 0.3 % (0-2.0); HEMATOCRIT 34.4 % (32.4-45.2); HEMOGLOBIN 11.3 GM/dL (10.7-15.3); LYMPH % 5.2 % (8-40); MCH 26.6 pg (25.7-33.7); MCHC 32.8 g/dl (32.0-36.0); MEAN CELL VOLUME 81.1 fl (80-96); MEAN PLT VOLUME 7.8 fl (7.5-11.1); MONO % 4.8 % (3.8-10.2); NEUT % 89.7 % (42.8-82.8); PLATELET COUNT 303 10^3/uL (134-434); RBC 4.24 M/mm3 (3.60-5.2); RDW 16.3 % (11.6-15.6)
[2023-09-14 13:48] LABS: POTASSIUM 3.6 mmol/L (3.5-5.1)
[2023-09-14 13:50] LABS: CALCIUM 8.8 mg/dL (8.5-10.1)
[2023-09-14 13:51] LABS: BLOOD UREA NITROGEN 5.1 mg/dL (7-18); MAGNESIUM 1.7 mg/dL (1.8-2.4)
[2023-09-14 13:54] LABS: CREATININE 0.4 mg/dL (0.55-1.3)
[2023-09-14 13:56] LABS: TOT PROT 6.5 g/dl (6.4-8.2)
[2023-09-14 13:57] LABS: BILIRUBIN,TOTAL 0.3 mg/dL (0.2-1)
[2023-09-14 14:10] VITALS: BP 133/70; PULSE 59; RESP 20
[2023-09-14] MEDS ORDERED: PYRIDOXINE HCL (B-6) 50 MG TABLET (FP) PO ONE (14:37)
[2023-09-14 15:09] LABS: EPI CELLS >36 /uL (0-25.1); HYALINE CASTS 3 /uL (0-3.1); PH,URINE 7.5 (5.0-8.0); URINE APPEARANCE CLEAR; URINE BACTERIA 251 /uL (0-1359); URINE BILIRUBIN NEGATIVE (NEGATIVE); URINE COLOR YELLOW; URINE GLUCOSE (UA) NEGATIVE (NEGATIVE); URINE KETONE 4+ (NEGATIVE); URINE LEUK ESTERASE NEGATIVE (NEGATIVE); URINE NITRITE NEGATIVE (NEGATIVE); URINE PROTEIN 1+ (NEGATIVE); URINE RBC 35 /uL (0-23.9); URINE UROBILINOGEN 0.2 mg/dL (0.2-1.0); URINE WBC 18 /uL (0-25.8)
== END 2023-09-14 15:47 | disposition home or self-care (01) ==
LOC: JER 11:32
PROC: 3E033GC Introduction of Other Therapeutic Substance into Peripheral Vein, Percutaneous Approach (ICD-10-PCS; principal; 2023-09-14)
PROC: 3E0337Z Introduction of Electrolytic and Water Balance Substance into Peripheral Vein, Percutaneous Approach (ICD-10-PCS; 2023-09-14)
DX: O21.9 Vomiting of pregnancy, unspecified (principal); O26.891 Other specified pregnancy related conditions, first trimester; R20.0 Anesthesia of skin; O99.810 Abnormal glucose complicating pregnancy; K90.49 Malabsorption due to intolerance, not elsewhere classified; Z3A.12 12 weeks gestation of pregnancy; Z20.822 Contact with and (suspected) exposure to COVID-19
CPT/HCPCS: 0241U-QW; 36415; 80053; 81003; 83735; 85025; 87086; 93005; 93010; 99284-25

== ENCOUNTER 2024-02-07 05:41 | Observation (INO) | payer OTHER ==
[2024-02-07 05:49] VITALS: BMI 32.7
[2024-02-07] MEDS ORDERED: ONDANSETRON 4 MG/2 ML VIAL ONE (06:27)
[2024-02-07 06:55] LABS: HEMATOCRIT 42.8 % (32.4-45.2); HEMOGLOBIN 13.7 GM/dL (10.7-15.3); MCH 25.6 pg (25.7-33.7); MCHC 31.9 g/dl (32.0-36.0); MEAN CELL VOLUME 80.2 fl (80-96); MEAN PLT VOLUME 7.9 fl (7.5-11.1); PLATELET COUNT 331 10^3/uL (134-434); RBC 5.33 M/mm3 (3.60-5.2); RDW 16.9 % (11.6-15.6); WHITE BLOOD COUNT 7.8 K/mm3 (4.0-10.0)
[2024-02-07] MEDS: SODIUM CHLORIDE 0.9% 500 ML INFUS.BAG IV ONE ×2 (06:56→08:05)
[2024-02-07] MEDS: ONDANSETRON 4 MG/2 ML VIAL IVPUSH ONE (06:56)
[2024-02-07 07:23] LABS: BLOOD UREA NITROGEN 10.7 mg/dL (7-18)
[2024-02-07 07:25] LABS: CREATININE 0.8 mg/dL (0.55-1.3)
[2024-02-07 07:27] LABS: BILIRUBIN,TOTAL 0.6 mg/dL (0.2-1)
[2024-02-07 07:31] LABS: ALBUMIN 3.7 g/dl (3.4-5.0); CALCIUM 10.4 mg/dL (8.5-10.1); TOT PROT 8.5 g/dl (6.4-8.2)
[2024-02-07 08:08] LABS: MAGNESIUM 1.9 mg/dL (1.8-2.4)
[2024-02-07] MEDS: POTASSIUM CHLORIDE TABS 20 MEQ TABLET.ER (FP) PO ONE (08:21)
[2024-02-07 08:28] LABS: VENOUS BASE EXCESS -8.7 mmol/L (-2-2); VENOUS O2 SATURATION 75.9 % (70-80); VENOUS PCO2 34.4 mmHg (38-52); VENOUS PH 7.302 (7.310-7.410)
[2024-02-07 08:32] LABS: ANISOCYTOSIS 2+; MACROCYTOSIS 0
[2024-02-07] MEDS: KCL 20 MEQ PREMIX BAG 20 MEQ/100 ML INFUS.BAG IVPB SCH (09:04)
[2024-02-07] MEDS: KCL 10 MEQ IVPB 10 MEQ/100 ML INFUS.BAG IVPB SCH ×2 (09:10→19:11)
[2024-02-07 09:22] LABS: PH,URINE 5.5 (5.0-8.0); URINE APPEARANCE Clear; URINE BILIRUBIN 1+ (NEGATIVE); URINE COLOR Yellow; URINE GLUCOSE (UA) Negative (NEGATIVE); URINE KETONE 4+ (NEGATIVE); URINE LEUK ESTERASE Negative (NEGATIVE); URINE NITRITE Negative (NEGATIVE); URINE PROTEIN 2+ (NEGATIVE); URINE UROBILINOGEN 0.2 mg/dL (0.2-1.0)
[2024-02-07] MEDS: ELECTROLYTE-148 SOLN 1,000 ML IV SCH (10:40)
[2024-02-07] MEDS: PROMETHAZINE HCL 25 MG/1 ML VIAL IVPB ONE (12:25)
[2024-02-07] MEDS ORDERED: FAMOTIDINE 20 MG/50 ML IVPB 20 MG/50 ML MG IVPB ONE (12:42)
[2024-02-07] MEDS: FAMOTIDINE 20 MG PREMIXED IVPB IVPB ONE (12:44)
[2024-02-07 13:07] VITALS: RESP 18
[2024-02-07 16:39] LABS: BASO % 0.2 % (0-2.0); EOS % 0.4 % (0-4.5); HEMOGLOBIN 11.5 GM/dL (10.7-15.3); LYMPH % 18.6 % (8-40); MCH 25.2 pg (25.7-33.7); MCHC 32.1 g/dl (32.0-36.0); MEAN CELL VOLUME 78.5 fl (80-96); MEAN PLT VOLUME 7.8 fl (7.5-11.1); MONO % 13.2 % (3.8-10.2); NEUT % 67.6 % (42.8-82.8); PLATELET COUNT 273 10^3/uL (134-434); RBC 4.58 M/mm3 (3.60-5.2); RDW 17.1 % (11.6-15.6); WHITE BLOOD COUNT 7.6 K/mm3 (4.0-10.0)
[2024-02-07 16:48] LABS: INR 1.11 (0.83-1.09); PROTHROMBIN TIME (PATIENT) 12.7 SEC (9.7-13.0)
[2024-02-07 16:51] LABS: ACTIVATED PTT 28.5 SECONDS (25.2-36.5)
[2024-02-07 16:55] LABS: CHLORIDE 99 mmol/L (98-107); SODIUM 132 mmol/L (136-145)
[2024-02-07 16:57] LABS: BLOOD UREA NITROGEN 6.5 mg/dL (7-18); CO2 18 mmol/L (21-32); GLUCOSE,RANDOM 82 mg/dL (74-106)
[2024-02-07 17:00] LABS: SGPT/ALT 15 U/L (13-61)
[2024-02-07 17:01] LABS: CREATININE 0.6 mg/dL (0.55-1.3); SGOT/AST 19 U/L (15-37)
[2024-02-07 17:02] LABS: BILIRUBIN,TOTAL 0.5 mg/dL (0.2-1)
[2024-02-07 17:03] LABS: ALK PHOS 65 U/L (45-117)
[2024-02-07 17:10] LABS: ALBUMIN 2.9 g/dl (3.4-5.0); ANION GAP 16 mmol/L (4-13); POTASSIUM 2.9 mmol/L (3.5-5.1); TOT PROT 6.4 g/dl (6.4-8.2)
[2024-02-07 17:50] LABS: HIV INTERPRETATION NEGATIVE (NEGATIVE)
[2024-02-07] MEDS ORDERED: ONDANSETRON 4 MG/2 ML VIAL IVPUSH PRN (18:09)
[2024-02-07] MEDS: POTASSIUM CHLORIDE ORAL LIQUID 20 MEQ/15 ML PO ONE (18:30)
[2024-02-07] MEDS: FAMOTIDINE 20 MG/50 ML IVPB 20 MG/50 ML MG IVPB SCH (22:00)
[2024-02-07 23:52] LABS: POTASSIUM 3.1 mmol/L (3.5-5.1)
[2024-02-07 23:54] LABS: CALCIUM 8.7 mg/dL (8.5-10.1)
[2024-02-07 23:55] LABS: BLOOD UREA NITROGEN 6.7 mg/dL (7-18)
[2024-02-07 23:58] LABS: CREATININE 0.5 mg/dL (0.55-1.3)
[2024-02-08 07:58] LABS: BLOOD UREA NITROGEN 6.2 mg/dL (7-18); CALCIUM 8.6 mg/dL (8.5-10.1)
[2024-02-08 08:01] LABS: CREATININE 0.7 mg/dL (0.55-1.3)
[2024-02-08] MEDS: LACTATED RINGERS SOLUTION 1,000 ML/1,000 ML INFUS.BAG IV SCH (08:52)
[2024-02-08] MEDS: KCL 10 MEQ IVPB 10 MEQ/100 ML INFUS.BAG IVPB SCH ×2 (13:23→17:35)
[2024-02-08 17:02] LABS: POTASSIUM 3.3 mmol/L (3.5-5.1)
[2024-02-08 17:03] LABS: BLOOD UREA NITROGEN 4.8 mg/dL (7-18); CALCIUM 8.8 mg/dL (8.5-10.1)
[2024-02-08 17:07] LABS: CREATININE 0.5 mg/dL (0.55-1.3)
[2024-02-08] MEDS: POTASSIUM CHLORIDE ORAL LIQUID 20 MEQ/15 ML PO ONE (17:35)
[2024-02-09 07:27] LABS: BASO % 0.4 % (0-2.0); EOS % 1.4 % (0-4.5); HEMATOCRIT 33.9 % (32.4-45.2); HEMOGLOBIN 10.8 GM/dL (10.7-15.3); LYMPH % 34.7 % (8-40); MCH 25.8 pg (25.7-33.7); MCHC 31.9 g/dl (32.0-36.0); MEAN CELL VOLUME 80.9 fl (80-96); MEAN PLT VOLUME 8.1 fl (7.5-11.1); MONO % 14.2 % (3.8-10.2); NEUT % 49.3 % (42.8-82.8); PLATELET COUNT 228 10^3/uL (134-434); RBC 4.19 M/mm3 (3.60-5.2); RDW 16.9 % (11.6-15.6); WHITE BLOOD COUNT 5.1 K/mm3 (4.0-10.0)
[2024-02-09 07:41] LABS: POTASSIUM 3.1 mmol/L (3.5-5.1)
[2024-02-09 07:49] LABS: ALBUMIN 2.8 g/dl (3.4-5.0); BLOOD UREA NITROGEN 3.1 mg/dL (7-18)
[2024-02-09 07:51] LABS: CREATININE 0.7 mg/dL (0.55-1.3)
[2024-02-09 07:52] LABS: BILIRUBIN,TOTAL 0.4 mg/dL (0.2-1)
[2024-02-09] MEDS: POTASSIUM CHLORIDE ORAL LIQUID 20 MEQ/15 ML PO ONE (11:56)
[2024-02-09] MEDS: KCL 10 MEQ IVPB 10 MEQ/100 ML INFUS.BAG IVPB SCH (12:09)
[2024-02-09] MEDS ORDERED: SODIUM CHLORIDE 0.9%/KCL 20 MEQ/1,000 ML INFUS.BAG IV SCH (15:30)
[2024-02-09] MEDS: SODIUM CHLORIDE 0.9%/KCL 20 MEQ/1,000 ML INFUS.BAG IV SCH (17:04)
[2024-02-10 06:58] LABS: POTASSIUM 3.7 mmol/L (3.5-5.1)
[2024-02-10 07:04] LABS: CALCIUM 8.2 mg/dL (8.5-10.1)
[2024-02-10 07:05] LABS: ALBUMIN 2.3 g/dl (3.4-5.0); BLOOD UREA NITROGEN 4.2 mg/dL (7-18); MAGNESIUM 1.6 mg/dL (1.8-2.4)
[2024-02-10 07:08] LABS: CREATININE 0.5 mg/dL (0.55-1.3)
[2024-02-10 07:10] LABS: BILIRUBIN,TOTAL 0.2 mg/dL (0.2-1); TOT PROT 5.1 g/dl (6.4-8.2)
[2024-02-10 09:41] VITALS: BP 112/61; PULSE 94; TEMP 97.6
[2024-02-10] MEDS: MAGNESIUM OXIDE 400 MG TABLET (FP) PO ONE (10:58)
== END 2024-02-10 13:15 | disposition home or self-care (01) ==
LOC: JER 05:41 → JERBED 08:14 → INTOOBSV 08:14 → UNDOADMOB 08:14 → JERBED 10:41 → JLDR 12:26 → J3W 12:55
PROVIDERS: ADMIT Obstetrics & Gynecology; ATTEND Obstetrics & Gynecology
PROC: 3E033GC Introduction of Other Therapeutic Substance into Peripheral Vein, Percutaneous Approach (ICD-10-PCS; principal; 2024-02-07)
PROC: 3E0337Z Introduction of Electrolytic and Water Balance Substance into Peripheral Vein, Percutaneous Approach (ICD-10-PCS; 2024-02-07)
DX: O21.0 Mild hyperemesis gravidarum (principal); Z3A.31 31 weeks gestation of pregnancy; F12.988 Cannabis use, unspecified with other cannabis-induced disorder; E87.8 Other disorders of electrolyte and fluid balance, not elsewhere classified; E87.6 Hypokalemia
CPT/HCPCS: 36415; 80048; 80053; 81003; 82010; 82803; 83735; 85025; 85610; 85730; 86780; 86803; 86850; 86900; 86901; 87086; 87389; 93005; 93010; 99285-25; G0378

== ENCOUNTER 2024-02-20 13:02 | Emergency (ER) | payer OTHER ==
[2024-02-20 13:12] VITALS: BP 124/78; PULSE 86; RESP 16; TEMP 98.6; BMI 33.6
[2024-02-20] MEDS ORDERED: ONDANSETRON 4 MG/2 ML VIAL ONE ×2 (14:18→15:45)
[2024-02-20] MEDS: LACTATED RINGERS SOLUTION 1,000 ML/1,000 ML INFUS.BAG IV SCH (14:26)
[2024-02-20] MEDS: ONDANSETRON 4 MG/2 ML VIAL IVPB ONE (14:26)
[2024-02-20 14:31] LABS: BASO % 0.6 % (0-2.0); EOS % 0.4 % (0-4.5); HEMATOCRIT 31.7 % (32.4-45.2); HEMOGLOBIN 10.1 GM/dL (10.7-15.3); MCH 25.5 pg (25.7-33.7); MEAN CELL VOLUME 79.9 fl (80-96); MONO % 10.3 % (3.8-10.2); NEUT % 68.7 % (42.8-82.8); PLATELET COUNT 295 10^3/uL (134-434); RBC 3.96 M/mm3 (3.60-5.2); RDW 17.6 % (11.6-15.6); WHITE BLOOD COUNT 8.7 K/mm3 (4.0-10.0)
[2024-02-20 14:50] LABS: POTASSIUM 3.5 mmol/L (3.5-5.1)
[2024-02-20 14:55] LABS: CALCIUM 8.6 mg/dL (8.5-10.1)
[2024-02-20 14:55] LABS: EPI CELLS >36 /uL (0-25.1); HYALINE CASTS 2 /uL (0-3.1); URINE APPEARANCE CLEAR; URINE BACTERIA 3123 /uL (0-1359); URINE BILIRUBIN NEGATIVE (NEGATIVE); URINE COLOR YELLOW; URINE GLUCOSE (UA) NEGATIVE (NEGATIVE); URINE KETONE 4+ (NEGATIVE); URINE LEUK ESTERASE 1+ (NEGATIVE); URINE NITRITE NEGATIVE (NEGATIVE); URINE PROTEIN TRACE (NEGATIVE); URINE RBC 25 /uL (0-23.9); URINE WBC 95 /uL (0-25.8)
[2024-02-20 14:56] LABS: ALBUMIN 2.7 g/dl (3.4-5.0); BLOOD UREA NITROGEN 3.7 mg/dL (7-18)
[2024-02-20 14:59] LABS: CREATININE 0.5 mg/dL (0.55-1.3)
[2024-02-20 15:00] LABS: BILIRUBIN,TOTAL 0.7 mg/dL (0.2-1); TOT PROT 6.2 g/dl (6.4-8.2)
[2024-02-20] MEDS ORDERED: PYRIDOXINE HCL (B-6) 100 MG TABLET PO ONE (15:07)
[2024-02-20] MEDS: LACTATED RINGERS SOLUTION 1,000 ML/1,000 ML INFUS.BAG IV ONE (15:54)
[2024-02-20] MEDS: ONDANSETRON 4 MG/2 ML VIAL IVPUSH ONE (15:54)
== END 2024-02-20 16:49 | disposition home or self-care (01) ==
LOC: JER 13:02
PROC: 3E033GC Introduction of Other Therapeutic Substance into Peripheral Vein, Percutaneous Approach (ICD-10-PCS; principal; 2024-02-20)
PROC: 3E033GC Introduction of Other Therapeutic Substance into Peripheral Vein, Percutaneous Approach (ICD-10-PCS; 2024-02-20)
DX: O09.513 Supervision of elderly primigravida, third trimester (principal); O21.0 Mild hyperemesis gravidarum; O23.13 Infections of bladder in pregnancy, third trimester; N30.00 Acute cystitis without hematuria; Z3A.32 32 weeks gestation of pregnancy
CPT/HCPCS: 36415; 80053; 81003; 85025; 87086; 99284-25

== ENCOUNTER 2024-03-11 11:52 | Inpatient (IN) | payer OTHER ==
[2024-03-11] MEDS: ELECTROLYTE-148 SOLN 500 ML IV ONE (12:45)
[2024-03-11] MEDS ORDERED: PROMETHAZINE HCL 12.5 MG SUPPOSITORY RC PRN (12:53)
[2024-03-11] MEDS ORDERED: FAMOTIDINE 20 MG/50 ML IVPB 20 MG/50 ML MG IVPB ONE (12:57)
[2024-03-11] MEDS: ONDANSETRON 4 MG/2 ML VIAL IVPUSH PRN (13:05)
[2024-03-11] MEDS: ELECTROLYTE-148 SOLN 1,000 ML IV SCH (13:15)
[2024-03-11 13:17] LABS: BASO % 0.3 % (0-2.0); EOS % 0.4 % (0-4.5); HEMATOCRIT 37.8 % (32.4-45.2); HEMOGLOBIN 12.3 GM/dL (10.7-15.3); LYMPH % 34.4 % (8-40); MCH 24.9 pg (25.7-33.7); MCHC 32.7 g/dl (32.0-36.0); MEAN CELL VOLUME 76.3 fl (80-96); MEAN PLT VOLUME 8.3 fl (7.5-11.1); MONO % 18.9 % (3.8-10.2); PLATELET COUNT 280 10^3/uL (134-434); RBC 4.95 M/mm3 (3.60-5.2); RDW 18.3 % (11.6-15.6); WHITE BLOOD COUNT 3.7 K/mm3 (4.0-10.0)
[2024-03-11 13:34] LABS: CHLORIDE 98 mmol/L (98-107); SODIUM 135 mmol/L (136-145)
[2024-03-11 13:36] LABS: BLOOD UREA NITROGEN 10.2 mg/dL (7-18); CALCIUM 9.4 mg/dL (8.5-10.1); CO2 21 mmol/L (21-32); GLUCOSE,RANDOM 83 mg/dL (74-106)
[2024-03-11 13:39] LABS: SGPT/ALT 20 U/L (13-61)
[2024-03-11 13:40] LABS: CREATININE 0.9 mg/dL (0.55-1.3); SGOT/AST 25 U/L (15-37)
[2024-03-11 13:41] LABS: BILIRUBIN,TOTAL 1.1 mg/dL (0.2-1); TOT PROT 7.1 g/dl (6.4-8.2)
[2024-03-11 13:42] LABS: ALK PHOS 120 U/L (45-117)
[2024-03-11 13:47] LABS: ANION GAP 17 mmol/L (4-13); POTASSIUM 2.8 mmol/L (3.5-5.1)
[2024-03-11] MEDS ORDERED: DEXTROSE 5%-LACTATED RINGERS 980 ML with POTASSIUM CHLORIDE 40 MEQ IV SCH (15:30)
[2024-03-11 16:22] LABS: MAGNESIUM 1.9 mg/dL (1.8-2.4)
[2024-03-11 16:25] LABS: PHOSPHOROUS 2.8 mg/dL (2.5-4.9)
[2024-03-11] MEDS: POTASSIUM CHLORIDE 40 MEQ in DEXTROSE 5%-LACTATED RINGERS 980 ML IV SCH (17:15)
[2024-03-11 17:42] LABS: EPI CELLS 12 /uL (0-25.1); HYALINE CASTS 5 /uL (0-3.1); PH,URINE 6.5 (5.0-8.0); URINE APPEARANCE CLEAR; URINE BACTERIA 542 /uL (0-1359); URINE BILIRUBIN 2+ (NEGATIVE); URINE COLOR DK YELLOW; URINE GLUCOSE (UA) NEGATIVE (NEGATIVE); URINE KETONE 2+ (NEGATIVE); URINE LEUK ESTERASE TRACE (NEGATIVE); URINE NITRITE NEGATIVE (NEGATIVE); URINE PROTEIN 1+ (NEGATIVE); URINE RBC 17 /uL (0-23.9); URINE WBC 145 /uL (0-25.8)
[2024-03-11 18:03] VITALS: BMI 32.7
[2024-03-11 18:05] LABS: BASO % 0.4 % (0-2.0); EOS % 0.4 % (0-4.5); HEMATOCRIT 34.8 % (32.4-45.2); HEMOGLOBIN 11.3 GM/dL (10.7-15.3); LYMPH % 31.6 % (8-40); MCH 24.9 pg (25.7-33.7); MCHC 32.4 g/dl (32.0-36.0); MEAN CELL VOLUME 76.7 fl (80-96); MEAN PLT VOLUME 8.1 fl (7.5-11.1); MONO % 18.9 % (3.8-10.2); NEUT % 48.7 % (42.8-82.8); PLATELET COUNT 237 10^3/uL (134-434); RBC 4.54 M/mm3 (3.60-5.2); RDW 18.1 % (11.6-15.6); WHITE BLOOD COUNT 3.9 K/mm3 (4.0-10.0)
[2024-03-11 18:13] LABS: INR 1.04 (0.83-1.09); PROTHROMBIN TIME (PATIENT) 11.7 SEC (9.7-13.0)
[2024-03-11 18:16] LABS: ACTIVATED PTT 28.4 SECONDS (25.2-36.5)
[2024-03-11 18:29] LABS: CHLORIDE 97 mmol/L (98-107); SODIUM 134 mmol/L (136-145)
[2024-03-11 18:30] LABS: BLOOD UREA NITROGEN 8.4 mg/dL (7-18); CALCIUM 8.8 mg/dL (8.5-10.1); CO2 23 mmol/L (21-32); GLUCOSE,RANDOM 118 mg/dL (74-106)
[2024-03-11 18:34] LABS: CREATININE 1.2 mg/dL (0.55-1.3)
[2024-03-11 18:36] LABS: ANION GAP 14 mmol/L (4-13); POTASSIUM 2.7 mmol/L (3.5-5.1)
[2024-03-11] MEDS: FAMOTIDINE 20 MG/50 ML IVPB 20 MG/50 ML MG IVPB SCH (21:16)
[2024-03-12 08:45] LABS: POTASSIUM 3.7 mmol/L (3.5-5.1)
[2024-03-12 08:48] LABS: CALCIUM 9.3 mg/dL (8.5-10.1)
[2024-03-12 08:49] LABS: MAGNESIUM 2.1 mg/dL (1.8-2.4)
[2024-03-12 08:52] LABS: CREATININE 0.9 mg/dL (0.55-1.3); PHOSPHOROUS 2.4 mg/dL (2.5-4.9)
[2024-03-12] MEDS: FAMOTIDINE 20 MG TABLET PO SCH (21:34)
[2024-03-13] MEDS ORDERED: ONDANSETRON 4 MG TABLET PO PRN (09:02)
[2024-03-14 10:47] VITALS: BP 110/76; PULSE 78; RESP 18; TEMP 98.6
== END 2024-03-14 11:55 | disposition home or self-care (01) | DRG 832 ==
LOC: JDEL 11:52 → JLDR 17:10 → J3W 21:02
PROVIDERS: ADMIT Obstetrics & Gynecology; ATTEND Obstetrics & Gynecology
DX: O21.1 Hyperemesis gravidarum with metabolic disturbance (principal); N17.9 Acute kidney failure, unspecified; Z3A.36 36 weeks gestation of pregnancy
CPT/HCPCS: 36415; 80048; 80053; 81003; 83540; 83550; 83735; 84100; 85025; 85610; 85730; 86780; 86850; 86900; 86901; 87086; G0378

== ENCOUNTER 2024-03-22 20:14 | Inpatient (IN) | payer OTHER ==
[2024-03-22 20:23] VITALS: BMI 32.8
[2024-03-22] MEDS ORDERED: ONDANSETRON *ODT* 4 MG TABLET ONE (20:27)
[2024-03-22] MEDS: ONDANSETRON *ODT* 4 MG TABLET SL ONE (20:33)
[2024-03-22] MEDS: ONDANSETRON 4 MG/2 ML VIAL IVPB SCH (23:30)
[2024-03-22] MEDS: ELECTROLYTE-148 SOLN 1,000 ML IV SCH (23:45)
[2024-03-22] MEDS ORDERED: ONDANSETRON 4 MG/2 ML VIAL ONE (23:53)
[2024-03-23] MEDS ORDERED: FAMOTIDINE 20 MG/50 ML IVPB 20 MG/50 ML MG IVPB ONE ×2 (00:28→09:20)
[2024-03-23 00:48] LABS: BASO % 0.4 % (0-2.0); EOS % 0.3 % (0-4.5); HEMATOCRIT 30.2 % (32.4-45.2); HEMOGLOBIN 9.6 GM/dL (10.7-15.3); LYMPH % 22.7 % (8-40); MCH 24.5 pg (25.7-33.7); MCHC 31.7 g/dl (32.0-36.0); MEAN CELL VOLUME 77.2 fl (80-96); MEAN PLT VOLUME 8.7 fl (7.5-11.1); MONO % 10.1 % (3.8-10.2); NEUT % 66.5 % (42.8-82.8); PLATELET COUNT 205 10^3/uL (134-434); RBC 3.91 M/mm3 (3.60-5.2); RDW 18.1 % (11.6-15.6); WHITE BLOOD COUNT 8.1 K/mm3 (4.0-10.0)
[2024-03-23] MEDS: FAMOTIDINE 20 MG/50 ML IVPB 20 MG/50 ML MG IVPB SCH (01:00)
[2024-03-23 01:02] LABS: POTASSIUM 3.9 mmol/L (3.5-5.1)
[2024-03-23 01:03] LABS: BLOOD UREA NITROGEN 7.2 mg/dL (7-18); CALCIUM 8.5 mg/dL (8.5-10.1)
[2024-03-23 01:07] LABS: CREATININE 0.5 mg/dL (0.55-1.3)
[2024-03-23 01:47] LABS: INR 0.86 (0.83-1.09); PROTHROMBIN TIME (PATIENT) 9.9 SEC (9.7-13.0)
[2024-03-23] MEDS ORDERED: ONDANSETRON 4 MG/2 ML VIAL ONE (05:03)
[2024-03-23 06:12] LABS: URINE BARBITURATES NEGATIVE (NEGATIVE); URINE BENZODIAZEPINES NEGATIVE (NEGATIVE)
[2024-03-23 06:13] LABS: COCAINE, UR NEGATIVE (NEGATIVE); METHADONE, UR NEGATIVE (NEGATIVE); OPIATES, URI NEGATIVE (NEGATIVE); PHENCYCLIDINE,URINE NEGATIVE (NEGATIVE)
[2024-03-23 06:14] LABS: URINE AMPHETAMINES NEGATIVE (NEGATIVE)
[2024-03-23 09:19] LABS: RETICULOCYTES 1.33 % (0.5-1.5)
[2024-03-23 09:42] LABS: URIC ACID 3.7 mg/dL (2.6-7.2)
[2024-03-23] MEDS: DINOPROSTONE 10 MG VAGINAL SUPPOSITORY VG ONE (11:20)
[2024-03-23] MEDS: PROMETHAZINE HCL 12.5 MG SUPPOSITORY RC PRN (11:50)
[2024-03-23] MEDS ORDERED: BUTORPHANOL TARTRATE 2 MG/ML VIAL ONE (17:15)
[2024-03-23] MEDS ORDERED: PROMETHAZINE HCL 25 MG/1 ML VIAL ONE (17:15)
[2024-03-23] MEDS: BUTORPHANOL TARTRATE 1 MG/ML VIAL IVPB PRN (17:25)
[2024-03-23] MEDS: PROMETHAZINE HCL 25 MG/1 ML VIAL IVPB ONE (17:25)
[2024-03-23] MEDS ORDERED: OXYTOCIN 20 UNITS in 0.9% NS 20 UNIT/1,000 ML INFUS.BAG IV ONE (18:48)
[2024-03-23] MEDS: OXYTOCIN 20 UNITS in 0.9% NS 20 UNIT/1,000 ML INFUS.BAG IV SCH (18:50)
[2024-03-23] MEDS ORDERED: BENZOCAINE 28 GM HEMORRHOIDAL OINTMENT TP PRN (19:06)
[2024-03-23] MEDS ORDERED: BENZOCAINE 20% 57 GM BOTTLE TP PRN (19:06)
[2024-03-23] MEDS ORDERED: WITCH HAZEL 50% (TUCKS) 40 PAD/JAR PAD TP PRN (19:06)
[2024-03-23] MEDS ORDERED: METHYLERGONOVINE MALEATE 0.2 MG/1 ML AMP IM PRN (19:06)
[2024-03-23] MEDS ORDERED: oxyCODONE HCL 5 MG TABLET PO PRN (19:06)
[2024-03-23] MEDS ORDERED: BISACODYL 10 MG SUPP.RECT RC PRN (19:06)
[2024-03-23 21:57] VITALS: RESP 18
[2024-03-24] MEDS: IBUPROFEN 600 MG TABLET (FP) PO PRN (02:38)
[2024-03-24] MEDS: ACETAMINOPHEN 325 MG TABLET (FP) PO PRN (05:39)
[2024-03-24 09:02] LABS: BASO % 0.4 % (0-2.0); EOS % 0.3 % (0-4.5); HEMATOCRIT 26.5 % (32.4-45.2); HEMOGLOBIN 8.6 GM/dL (10.7-15.3); LYMPH % 15.2 % (8-40); MCHC 32.4 g/dl (32.0-36.0); MEAN CELL VOLUME 77.3 fl (80-96); NEUT % 74.1 % (42.8-82.8); PLATELET COUNT 205 10^3/uL (134-434); RBC 3.43 M/mm3 (3.60-5.2); RDW 18.3 % (11.6-15.6); WHITE BLOOD COUNT 9.2 K/mm3 (4.0-10.0)
[2024-03-24] MEDS: PRENATAL VITAMINS W/ FOLIC ACID TABLET (FP) PO SCH (09:24)
[2024-03-24] MEDS: FERROUS SO4 325 MG TABLET (FP) PO SCH (09:24)
[2024-03-24] MEDS ORDERED: SENNOSIDES/DOCUSATE COMBO (SENNA PLUS) TABLET (UD) PO PRN (22:00)
[2024-03-25 15:17] VITALS: BP 117/77; PULSE 89; TEMP 98.7
== END 2024-03-25 16:20 | disposition home or self-care (01) | DRG 807 ==
LOC: JER 20:14 → JLDR 22:45 → J3W 03-23 21:47
PROVIDERS: ADMIT Obstetrics & Gynecology; ATTEND Obstetrics & Gynecology
PROC: 10E0XZZ Delivery of Products of Conception, External Approach (ICD-10-PCS; principal; 2024-03-23)
DX: O13.4 Gestational [pregnancy-induced] hypertension without significant proteinuria, complicating childbirth (principal); Z37.0 Single live birth; O99.013 Anemia complicating pregnancy, third trimester; O21.0 Mild hyperemesis gravidarum; Z3A.38 38 weeks gestation of pregnancy
CPT/HCPCS: 36415; 59409; 80048; 80307; 82977; 83010; 84450; 84460; 84550; 85025; 85032; 85045; 85610; 85730; 86780; 86850; 86900; 86901; 93970-TC; 99285-25; Q0162